=== PATIENT | female | born 1940 | race Caucasian/White ===

== ENCOUNTER 2020-08-01 17:42 | Observation (INO) | payer MEDICARE, SELFPAY ==
[2020-08-01 17:55] VITALS: BP 173/96; PULSE 79; RESP 18; TEMP 36.7; O2SAT 91; BMI 17.3
--- NOTE | 2020-08-01 18:39 | ECG_ITS ---
[facility] Test Date: 2020-08-01 Pat Name: Devorah Vickers Department: Room: Gender: Female Filler Feeder: : 1940 Requested By: Fidel Pham Order Number: [id number] Malloy MD: Alia Xie M.D. Measurements Intervals Reliance Rate: 72 P: 88 PA: 181 QRS: -27 QRSD: 138 T: 88 QT: 444 QTc: 487 Interpretive Statements SINUS RHYTHM WITH SINUS ARRHYTHMIA LEFT BUNDLE BRANCH BLOCK [120+ ms QRS DURATION, 80+ ms Q/S IN V1/V2, 85+ ms R IN I/aVL/V5/V6] Compared to ECG 03/27/2018 04:17:44 Left-axis deviation no longer present Electronically Signed On 08-02-2020 8:01:33 LEHR STRIPPER by Alia Xie M.D. [id number]
[2020-08-01 19:07] LABS: Basophils # 0.1 10^3/uL (0.0-0.1); Basophils % 1.5 %; Eosinophils # 0.3 10^3/uL (0.0-0.8); Eosinophils % 6.1 %; Hematocrit 46.2 % (37.0-47.0); Hemoglobin 14.7 g/dL (11.5-15.3); Lymphocytes # 1.7 10^3/uL (0.8-4.8); Lymphocytes % 31.9 %; Mean Corpuscular HGB Conc 31.8 g/dL (30.0-36.0); Mean Corpuscular Hemoglobin 29.3 pg (28.0-34.0); Mean Corpuscular Volume 92.2 fL (81-99); Mean Platelet Volume 10.7 fL (7.4-10.4); Monocytes # 0.4 10^3/uL (0.2-0.9); Monocytes % 6.9 %; Neutrophils # 2.78 10^3/uL (1.8-7.7); Neutrophils % 53.4 %; Nucleated Red Blood Cells % 0 %; Platelet Count 195 10^3/cmm (130-400); Red Blood Count 5.01 10^6/uL (4.1-5.3); Red Cell Distribution Width 12.9 % (12.1-15.1); White Blood Count 5.2 10^3/uL (4.0-10.0)
--- NOTE | 2020-08-01 19:15 | XR_ITS ---
WS: [id number] XR chest 1V portable [id number] REASON FOR EXAM: cough, wheezing FINDINGS: The chest is relatively unchanged compared to previous examination of 03/26/2018. Calcification in the aortic arch with minimal tortuosity. Calcified granulomatous disease in both hemithoraces. Significant flattening of the hemidiaphragms wi th moderate hyperexpansion. No definite active pulmonary parenchymal or pleural disease is noted. XR/XR chest 1V portable [id number] IMPRESSION: Lung configuration indicating obstructive lung disease. No acute abnormality is identified.
[2020-08-01 19:32] LABS: Procalcitonin 0.06 ng/mL (0-0.5)
[2020-08-01] MEDS: sodium chloride 0.9% 500 ML IV (19:33)
[2020-08-01 19:43] LABS: Alanine Aminotransferase 13 U/L (0-33); Alkaline Phosphatase 86 IU/L (35-105); Anion Gap 11.4 (5-19); Aspartate Amino Transferase 22 U/L (0-32); Blood Urea Nitrogen 24 mg/dL (8-23); Calcium 9.5 mg/dL (8.5-10.5); Carbon Dioxide 31 mmol/L (22-29); Chloride 100 mmol/L (98-107); Ferritin 137 ng/mL (15-150); Globulin 2.9 g/dL (1.3-4.6); Glucose 79 mg/dL (65-115); Lipase 24 U/L (13-60); Osmolality Calculated 289 mOsm/kg (285-295); Potassium 4.4 mmol/L (3.5-5.1); Sodium 138 mmol/L (136-145); Total Bilirubin 0.3 mg/dL (0.15-1.2); Total Protein 6.9 g/dL (6.6-8.7)
[2020-08-01 19:51] LABS: Bilirubin Urine Neg (Negative); Blood Urine 3+ (Negative); Glucose Urine UA Norm (Normal); Ketones Urine Negative (Negative); Leukocyte Esterase Urine Negative (Negative); Nitrate Urine Negative (Negative); Protein Urine Neg (Negative); Specific Gravity, Urine 1.025 (1.005-1.030); Urine Appearance Clear (CLEAR); Urine Color Yellow (Yellow); Urobilinogen Urine Norm (Negative); pH Urine 5 (5-7)
[2020-08-01 19:52] LABS: Add Urine Culture? No; Bacteria Urine TRACE /hpf; Hyaline Casts Urine 0-4 /lpf; Mucus Urine 2+ /hpf; Squamous Epithelial Cell Urine 15-25 /hpf (0-5); WBC Urine 0-4 /hpf (0-5)
--- NOTE | 2020-08-01 20:27 | W.ED.SOB ---
HPI - SOB/Dyspnea General: Chief Complaint: Nausea/Vomiting/Diarrhea Stated Complaint: nausea, loss appetite Time Seen by Provider: 08/01/20 18:50 Source: patient and family Mode of arrival: ambulatory Limitations: no limitations History of Present Illness: HPI Narrative: Patient is an 80 year old female who presents to the ED with complaints of cough, chest congestion, and shortness of breath. She only quit smoking about one week ago. She denies a fever. She has had these symptoms for a few weeks but it got worse today. MD elicited complaint: shortness of breath and cough Pertinent past history: COPD Onset (ago): week(s) Timing: intermittent and progressively worsening Severity: moderate Relieving factors: bronchodilators Known history of: COPD Associated symptoms: Reports chest congestion, cough and nausea; Deny abdominal pain, chest pain, diaphoresis, dizziness, extremity pain, fever(s), hemoptysis, lightheadedness, myalgias, orthopnea, palpitations, paresthesias, polydipsia, polyuria, rash or sense of impending doom Treatment prior to arrival: bronchodilator Review of Systems General: Reports: 10 or more systems reviewed and unremarkable except in HPI and below Const: Denies: fever(s) or diaphoresis Eyes: Denies: change in vision or blurry vision ENMT: Denies: throat pain, enlarged tonsils, odynophagia, hoarseness, mouth pain or swelling of lips/tongue Card: Denies: chest pain, palpitations, lightheadedness or orthopnea Resp: Reports: chest congestion; Denies: hemoptysis GI: Reports: nausea; Denies: abdominal pain : Denies: flank pain, difficulty voiding, dysuria, urinary frequency, urinary urgency or urinary hesitancy Musc: Denies: extremity pain Skin/Breast: Denies: rash, pruritus or erythema Neuro: Denies: dizziness Endo: Denies: polyuria or polydipsia PFS ED PFSH: Medical History (Updated 08/02/20 @ 00:58 by Daphney Toscano MD, [facility]) COPD (chronic obstructive pulmonary disease) History of skin cancer Hyperlipidemia Hypertension Surgical History (Updated 08/02/20 @ 00:29 by Nba Riggs MD) S/P skin biopsy Family History (Updated 08/02/20 @ 00:29 by Nba Riggs MD) Other CAD (coronary artery disease) Social History (Reviewed 08/01/20 @ 20:33 by Daphney Toscano MD, [facility]) Smoking and tobacco status: former smoker Alcohol intake: former Substance/Drug Use: never Physical Exam Const: COMMON NORMALS: no acute distress, average body habitus, patient oriented x3, no limitations, healthy appearing, alert and well nourished HENMT: COMMON NORMALS: normocephalic, atraumatic and moist oral mucous membranes HEAD & SCALP: normocephalic and atraumatic Neck/C-Spine: COMMON NORMALS: full ROM, supple, no meningeal signs, no JVD and No carotid bruits Resp: COMMON NORMALS: normal respiratory effort, No retractions, No use of accessory muscles and percussion normal AUSCULTATION: rales on the left in the lower lung diez, wheezes expiratory wheezes and throughout and diminished lung sounds PERCUSSION: percussion normal Cardio: COMMON NORMALS: no JVD, regular rate, regular rhythm, S1 normal heart sound present, S2 normal heart sound present, No gallops present (Cardio), No clicks present (Cardio), No murmurs present (Cardio), No rub (Cardio) and Peripheral pulses 2+ throughout RATE: regular rate RHYTHM: regular rhythm HEART SOUNDS: S1 normal heart sound present and S2 normal heart sound present PERIPHERAL PULSES: Peripheral pulses 2+ throughout GI: COMMON NORMALS: Normal to inspection, nondistended, normoactive bowel sounds present, Soft to palpation, non-tender, No hepatosplenomegaly present, no masses and no bruits PALPATION: Yes Soft to palpation and Yes No hepatosplenomegaly present Extremity: COMMON NORMALS: normal to inspection, full ROM, capillary refill normal, no calf tenderness and no pedal edema Neuro: COMMON NORMALS: patient oriented x3 SENSORIUM/ORIENTATION: Yes alert MENINGEAL SIGNS: Yes no meningeal signs Skin: COMMON NORMALS: no rashes or lesions noted, no wounds, turgor normal, no jaundice, no petechiae and no mottling GENERAL SKIN EXAM: no rashes or lesions noted and turgor normal Course ED course: Patient who presented to the emergency department with shortness of breath, nausea, and in the emergency department she tested negative for the rapid Covid test. A Covid PCR was sent out. She will be admitted to the hospital for further evaluation and management Consultations: Consultation #1: Dr. Riggs who kindly accepted the patient to his service. Vital Signs: Vital signs: Vital Signs Temperature 98.0 F 08/01/20 17:55 Pulse Rate 84 08/02/20 00:15 Respiratory Rate 18 08/02/20 00:15 Blood Pressure 136/88 08/02/20 00:15 Pulse Oximetry 94 08/02/20 00:15 MDM - SOB/Dyspnea MDM Narrative: Medical decision making narrative: 80-year-old female patient who presented to the emergency department with likely COPD exacerbation. She is admitted for further evaluation and management. She was hypoxic and required oxygen while in the ED. Medical Records: Attestation: I reviewed the patient's medical records. Lab Data: Attestation: I reviewed the patient's lab results. Labs: Lab Results 08/01/20 08/01/20 08/01/20 Range/Units 19:00 19:00 19:00 WBC 5.2 (4.0-10.0) 10^3/ uL RBC 5.01 (4.1-5.3) 10^6/u L Hgb 14.7 (11.5-15.3) g/dL Hct 46.2 (37.0-47.0) % MCV 92.2 (81-99) fL MCH 29.3 (28.0-34.0) pg MCHC 31.8 (30.0-36.0) g/dL RDW 12.9 (12.1-15.1) % Plt Count 195 (130-400) 10^3/c mm MPV 10.7 H (7.4-10.4) fL Neut % (Auto) 53.4 % Lymph % (Auto) 31.9 % Lincoln % (Auto) 6.9 % Eos % (Auto) 6.1 % Baso % (Auto) 1.5 % Neut # (Auto) 2.78 (1.8-7.7) 10^3/u L Lymph # (Auto) 1.7 (0.8-4.8) 10^3/u L Lincoln # (Auto) 0.4 (0.2-0.9) 10^3/u L Eos # (Auto) 0.3 (0.0-0.8) 10^3/u L Baso # (Auto) 0.1 (0.0-0.1) 10^3/u L Nucleated RBC % (a uto) 0 % Nucleated RBCs # 0.0 /100WBC Sodium 138 (136-145) mmol/L Potassium 4.4 (3.5-5.1) mmol/L Chloride 100 (98-107) mmol/L Carbon Dioxide 31 H (22-29) mmol/L Anion Gap 11.4 (5-19) BUN 24 H (8-23) mg/dL Creatinine 0.6 (0.5-0.9) mg/dL GFR Calculation Not Reportable Glucose 79 (65-115) mg/dL Calculated Osmolal ity 289 (285-295) mOsm/k g Lactic Acid 1.0 (0.5-2.2) mmol/L Calcium 9.5 (8.5-10.5) mg/dL Ferritin 137 (15-150) ng/mL Total Bilirubin 0.3 (0.15-1.2) mg/dL AST 22 (0-32) U/L ALT 13 (0-33) U/L Alkaline Phosphata se 86 (35-105) IU/L Total Protein 6.9 (6.6-8.7) g/dL Albumin 4.0 (3.5-5.2) g/dL Globulin 2.9 (1.3-4.6) g/dL Lipase 24 (13-60) U/L Procalcitonin 0.06 (0-0.5) ng/mL Urine Color (Yellow) Urine Appearance (CLEAR) Urine pH (5-7) Ur Specific Gravit y (1.005-1.030) Urine Protein (Negative) Urine Glucose (UA) (Normal) Urine Ketones (Negative) Urine Blood (Negative) Urine Nitrate (Negative) Urine Bilirubin (Negative) Urine Urobilinogen (Negative) mg/dL Ur Leukocyte Mattie ase (Negative) Urine RBC (0-2) /hpf Urine WBC (0-5) /hpf Ur Squamous Epith Cells (0-5) /hpf Amorphous Sediment Urine Bacteria (NONE) /hpf Hyaline Casts /lpf Urine Mucus /hpf Influenza Type A A g (Negative) Influenza Type B A g (Negative) SARS-CoV-2 Ag (Rap id) (Negative) 08/01/20 08/01/20 08/01/20 Range/Units 19:27 19:40 22:35 WBC (4.0-10.0) 10^3/ uL RBC (4.1-5.3) 10^6/u L Hgb (11.5-15.3) g/dL Hct (37.0-47.0) % MCV (81-99) fL MCH (28.0-34.0) pg MCHC (30.0-36.0) g/dL RDW (12.1-15.1) % Plt Count (130-400) 10^3/c mm MPV (7.4-10.4) fL Neut % (Auto) % Lymph % (Auto) % Lincoln % (Auto) % Eos % (Auto) % Baso % (Auto) % Neut # (Auto) (1.8-7.7) 10^3/u L Lymph # (Auto) (0.8-4.8) 10^3/u L Lincoln # (Auto) (0.2-0.9) 10^3/u L Eos # (Auto) (0.0-0.8) 10^3/u L Baso # (Auto) (0.0-0.1) 10^3/u L Nucleated RBC % (a uto) % Nucleated RBCs # /100WBC Sodium (136-145) mmol/L Potassium (3.5-5.1) mmol/L Chloride (98-107) mmol/L Carbon Dioxide (22-29) mmol/L Anion Gap (5-19) BUN (8-23) mg/dL Creatinine (0.5-0.9) mg/dL GFR Calculation Glucose (65-115) mg/dL Calculated Osmolal ity (285-295) mOsm/k g Lactic Acid (0.5-2.2) mmol/L Calcium (8.5-10.5) mg/dL Ferritin (15-150) ng/mL Total Bilirubin (0.15-1.2) mg/dL AST (0-32) U/L ALT (0-33) U/L Alkaline Phosphata se (35-105) IU/L Total Protein (6.6-8.7) g/dL Albumin (3.5-5.2) g/dL Globulin (1.3-4.6) g/dL Lipase (13-60) U/L Procalcitonin (0-0.5) ng/mL Urine Color Yellow (Yellow) Urine Appearance Clear (CLEAR) Urine pH 5 (5-7) Ur Specific Gravit y 1.025 (1.005-1.030) Urine Protein Neg (Negative) Urine Glucose (UA) Norm (Normal) Urine Ketones Negative (Negative) Urine Blood 3+ H (Negative) Urine Nitrate Negative (Negative) Urine Bilirubin Neg (Negative) Urine Urobilinogen Norm (Negative) mg/dL Ur Leukocyte Mattie ase Negative (Negative) Urine RBC 5-10 H (0-2) /hpf Urine WBC 0-4 H (0-5) /hpf Ur Squamous Epith Cells 15-25 H (0-5) /hpf Amorphous Sediment Not Reportable Urine Bacteria Trace (NONE) /hpf Hyaline Casts 0-4 H /lpf Urine Mucus 2+ /hpf Influenza Type A A g Negative (Negative) Influenza Type B A g Negative (Negative) SARS-CoV-2 Ag (Rap id) Negative (Negative) Imaging Data^: CXR: Attestation: I personally reviewed and interpreted this imaging study as follows: My impression: Hyperexpanded lungs. No infiltrates noted EKG Data^: EKG 1: EKG Interpretation Date: 08/01/20 EKG interpretation time: 18:55 Prior EKG tracings: not available for review Interpretation: Sinus rhythm with sinus arrhythmia. Heart rate 72 bpm. Left bundle branch block. Discharge Plan Discharge Patient Disposition: Admitted As Inpatient Admit Provider: Nba Riggs Clinical Impression: COPD exacerbation, Hypoxia Condition: Stable Coding Level of Care Code ED Earth Science Teacher for Chg Fwd Exam Comprehensive
[2020-08-01 20:28] LABS: Influenza A by IFA Negative (Negative); Influenza B by IFA Negative (Negative)
[2020-08-01 21:10] VITALS: BP 159/101; PULSE 74; RESP 17; O2SAT 91
[2020-08-01 23:26] LABS: SARS Covid-2 Antigen Negative (Negative)
[2020-08-01] MEDS: azithromycin 500 MG in sodium chloride 0.9% 250 ML 250 MG IV (23:56)
[2020-08-02] VITALS (16 sets, daily range): BP systolic 105–157; BP diastolic 57–95; PULSE 61–90; RESP 10–18; TEMP 36.3–36.7; O2SAT 90–97
--- NOTE | 2020-08-02 00:26 | P.HP_ITS ---
Providers/Chief Complaint Admitting Physician: Nba Riggs MD Primary Care Provider: ARNALDO Coley Chief Complaint: VOMITING History of Present Illness Devorah Vickers is a 80 year old female with a past medical history of COPD, hypertension, hyperlipidemia who presents to [facility] due to complaints of shortness of breath. Patient tells me that she lives here in [place], she lives by herself, recently she has been complaining of increased shortness of breath, nonproductive cough, no fevers, no chills, no sick contacts, no known exposure to COVID-19. She quit smoking roughly a month ago, has greater than 79-ydhs-asou history of smoking, no hemoptysis, no bilateral calf swelling, no history of DVT or PEs Review of Systems Const: Denies: fever(s), chills, fatigue or malaise Eyes: Denies: change in vision or blurry vision ENMT: Denies: nasal congestion Card: Denies: chest pain, palpitations or irregular heart rhythm Resp: Reports: dyspnea and non-productive cough; Denies: productive cough or wheezing GI: Denies: abdominal pain, nausea, vomiting, hematemesis, diarrhea, constipation, hematochezia or melena : Denies: flank pain, dysuria or urinary frequency Musc: Denies: neck pain or back pain Skin/Breast: Denies: rash Neuro: Denies: headache(s), dizziness or vertigo Psych: Denies: anxiety or depression Endo: Denies: polyuria or polydipsia Medications/Allergies Allergies Allergy/AdvReac Type Severity Reaction Status Date / Time No Known Allergies Allergy Verified 08/01/20 18:02 Additional Medication Information Albuterol inhaler at home, uses other inhalers but cannot remember what they are called PFSH Acute PFSH: Medical History (Updated 08/02/20 @ 00:29 by Nba Riggs MD) COPD (chronic obstructive pulmonary disease) History of skin cancer Hyperlipidemia Hypertension Surgical History (Updated 08/02/20 @ 00:29 by Nba Riggs MD) S/P skin biopsy Family History (Updated 08/02/20 @ 00:29 by Nba Riggs MD) Other CAD (coronary artery disease) Social History Smoking and tobacco status: former smoker Alcohol intake: former Substance/Drug Use: never Vitals/I&O/Wt Last Vital Signs Temp 98.0 F 08/01/20 17:55 Pulse 84 08/02/20 00:15 Resp 18 08/02/20 00:15 BP 136/88 08/02/20 00:15 Pulse Ox 94 08/02/20 00:15 Weight last 48 hrs Weight 47.174 kg Physical Exam Const: COMMON NORMALS: no acute distress and patient oriented x3 GENERAL APPEARANCE: cooperative and comfortable HENMT: COMMON NORMALS: normocephalic HEAD & SCALP: normocephalic Eye: COMMON NORMALS: Equal, round and reactive pupils present, EOMs intact bilaterally and no papilledema GENERAL EYE: appearance normal, both eyes and all related structures PUPIL: Yes Equal, round and reactive pupils present DIRECT OPHTHALMOSCOPY: Yes no papilledema Neck/C-Spine: COMMON NORMALS: full ROM, no lymphadenopathy, no JVD and Thyroid normal THYROID: Thyroid normal Lymph: LYMPHATIC: no lymphadenopathy noted Resp: COMMON NORMALS: normal respiratory effort, No retractions, No use of accessory muscles and clear to auscultation bilaterally AUSCULTATION: wheezes Cardio: COMMON NORMALS: no JVD, regular rate, regular rhythm, S1 normal heart sound present, S2 normal heart sound present, No gallops present (Cardio), No clicks present (Cardio) and No murmurs present (Cardio) RATE: regular rate RHYTHM: regular rhythm HEART SOUNDS: S1 normal heart sound present and S2 normal heart sound present GI: COMMON NORMALS: Normal to inspection, nondistended, normoactive bowel sounds present, Soft to palpation, non-tender and No hepatosplenomegaly present PALPATION: Yes Soft to palpation and Yes No hepatosplenomegaly present Extremity: COMMON NORMALS: normal to inspection, full ROM and no pedal edema Neuro: COMMON NORMALS: patient oriented x3, CN's II-XII intact bilaterally, moves all extremities and no focal motor deficits Psych: COMMON NORMALS: mental status grossly normal, Normal thought process present and cooperative THOUGHT PROCESS: Normal thought process present Data : 08/01/20 19:00 08/01/20 19:00 A&P Assessment and plan (1) COPD exacerbation: -Solu-Medrol 40 every 8 hours, after 125 once -Advair, Spiriva, albuterol -Covid PCR ordered, Covid precautions -Oxygen therapy -Azithromycin for anti-inflammatory effect -CT of the chest ordered -Lovenox for DVT prophylaxis -Patient is DNR/DNI Status: Acute (2) COPD (chronic obstructive pulmonary disease): Status: Acute (3) Hyperlipidemia: Status: Acute (4) Hypertension: Status: Acute Attestations Medical Necessity Statement*: She requires hospitalization, outpatient with observation, for COPD exacerbation Coding Level of Care Code Acute Director Operations for [facility] Diagnoses COPD exacerbation J44.1 COPD (chronic obstructive pulmonary disease) J44.9 Hyperlipidemia E78.5 Hypertension I10
--- NOTE | 2020-08-02 01:37 | CT_ITS ---
WS: [id number] CT CHEST TECHNIQUE: Noncontrast CT of the chest with coronal and sagittal reformatted images. CLINICAL INFORMATION: sob COMPARISON: None. DLP: 329.[address] scans at [facility] use at least one of these dose optimization techniques: automat ed exposure control; mA and/or kV adjustment per patient size (includes targeted exams where dose is matched to clinical indication); or iterative reconstruction. FINDINGS: Moderate chronic emphysematous changes. No acute pulmonary infiltrates. No focal pneumonia or pleural fluid. Slight subsegmental atelectasis in the lung bases. No mediastinal or hilar lymphadenopathy. A ortic calcification. No axillary lymphadenopathy. Adrenal glands are normal. Hypertrophic changes thoracic spine. CT/CT chest wo con [id number] IMPRESSION: 1. Moderate chronic emphysematous changes. No acute pulmonary infiltrates. 2. No focal pneumonia or pleural fluid. 3. No mediastinal or hilar lymphadenopathy. Aortic calcification.
[2020-08-02 02:43] LABS: NT Pro B Type Natriuretic Pept 701 pg/mL (0-450)
[2020-08-02] MEDS: enoxaparin 40 mg/0.4 mL Syringe SUBCUT (05:40)
[2020-08-02 05:57] LABS: C Reactive Protein 1.7 mg/L (0.0-4.9)
[2020-08-02] MEDS: albuterol 8 gm MDI 1 PUFF INHALATION ×4 (07:32→20:12)
--- NOTE | 2020-08-02 09:07 | PC.CHAP ---
Pastoral Care Encounter/Spiritual Assessment Type of Contact [] Declined career guidance counselor visit [] Patient/Family/Request visit [] Outpatient visit [] Follow-up visit [] Physician referral [] Code/Alert [] Routine visit [] Staff referral [] Actively dying [] Patient sleeping [] Family support [] [] Out of room [] Palliative care [] [x] Receiving care in room [] Pre-surgical visit [] Trauma [] Long length of stay [] ICU visit [] Other: Relational/Emotional Strength [] Patient feels connected with others/family/visitors/staff [] Distress [] Loneliness/isolation [] Abandonment Spirituality of Patient [] Person of Alley [] Attends Roman Catholic of their Alley [] Believes in Prayer [] Reads Bible or Gnosticism materials [] There are Spiritual issues to be addressed Sociology Adjunct Instructor Interventions [] Prayer [] Active listening [] Non-anxious presence [] Spiritual/emotional support [] Crisis/trauma care [] Spiritual counseling [] Bereavement support [] Provided bereavement packet [] Provided Bible/devotional materials [] Provided toy/stuffed animal, coloring book to patient or family member [] Provided Communion [] Anointing/Mission [] Salvation [] Completed spiritual assessment [] Other: Impact on Illness or Injury [] Angry [] Fearful [] Anxious [] Often cries [] Exhaustion [] Unable to work [] Unable to attend yazidism [] Unable to walk/stand [] Unable to read [] Unable to drive [] Unable to eat/drink [] Unable to sleep [] Unable to be with family [] Patient intubated [] Other: Summary Time spent with patient
--- NOTE | 2020-08-02 09:51 | PM.PN ---
Subjective Subjective: Interval history: Devorah reports she feels little bit better. Less coughing. Medications: Reviewed: Yes Vitals/I&O/Wt Last Vital Signs Temp 97.9 F 08/02/20 07:29 Pulse 88 08/02/20 07:37 Resp 16 08/02/20 07:33 BP 122/76 08/02/20 07:29 Pulse Ox 91 08/02/20 07:33 08/01/20 08/02/20 08/02/20 22:59 06:59 14:59 Intake Total 240 / 240 Balance 240 / 240 Weight last 48 hrs Weight 47.174 kg Physical Exam Narrative: EXAM NARRATIVE: General exam no apparent distress Cardiovascular regular rate and rhythm without murmur Lungs bilateral expiratory wheezes Abdomen is soft with positive bowel sounds. Extremities no cyanosis clubbing or edema Data : 08/01/20 19:00 08/01/20 19:00 Micro: Microbiology 08/02/20 04:38 Blood Culture - Preliminary Blood SPECIMEN COLLECTED A&P Assessment and plan (1) COPD exacerbation: Discontinue IV steroids Changed to prednisone Continue pulmonary toilet with Advair, Spiriva, albuterol Continue azithromycin Wean oxygen as tolerated Covid PCR pending, rapid negative CT of chest is ordered and pending Status: Acute (2) COPD (chronic obstructive pulmonary disease): See notations above Status: Acute (3) Hyperlipidemia: Will need to reconcile home medication list Status: Chronic (4) Hypertension: Need to reconcile home medication list Status: Chronic Attestations Medical Necessity Statement*: Needs continued hospital stay for close monitoring secondary to COPD exacerbation requiring IV steroids. Coding Level of Care Code Acute Manager Account Management for [facility] Diagnoses COPD exacerbation J44.1 COPD (chronic obstructive pulmonary disease) J44.9 Hyperlipidemia E78.5 Hypertension I10
[2020-08-02] MEDS: predniSONE 20 mg Tablet 40 MG PO (11:03)
--- NOTE | 2020-08-02 17:55 | PC.RESP ---
Pulmonary Rehab information sent to patient.
[2020-08-03] VITALS (14 sets, daily range): BP systolic 134–159; BP diastolic 72–81; PULSE 60–77; RESP 16–18; TEMP 36.3–36.7; O2SAT 88–97
[2020-08-03] MEDS: albuterol 8 gm MDI 1 PUFF INHALATION ×5 (00:52→16:52)
[2020-08-03 05:32] LABS: Basophils % 0.2 %; Eosinophils % 0.1 %; Hematocrit 40.9 % (37.0-47.0); Hemoglobin 13.2 g/dL (11.5-15.3); Lymphocytes # 1.5 10^3/uL (0.8-4.8); Lymphocytes % 13.8 %; Mean Corpuscular HGB Conc 32.3 g/dL (30.0-36.0); Mean Corpuscular Hemoglobin 29.7 pg (28.0-34.0); Mean Corpuscular Volume 91.9 fL (81-99); Mean Platelet Volume 11.4 fL (7.4-10.4); Monocytes # 0.5 10^3/uL (0.2-0.9); Monocytes % 5.1 %; Neutrophils # 8.43 10^3/uL (1.8-7.7); Neutrophils % 80.4 %; Nucleated Red Blood Cells % 0 %; Platelet Count 199 10^3/cmm (130-400); Red Blood Count 4.45 10^6/uL (4.1-5.3); Red Cell Distribution Width 13.1 % (12.1-15.1); White Blood Count 10.5 10^3/uL (4.0-10.0)
[2020-08-03] MEDS: enoxaparin 40 mg/0.4 mL Syringe SUBCUT (05:35)
[2020-08-03 06:15] LABS: Alanine Aminotransferase 9 U/L (0-33); Albumin Level 3.5 g/dL (3.5-5.2); Alkaline Phosphatase 70 IU/L (35-105); Anion Gap 12.2 (5-19); Aspartate Amino Transferase 14 U/L (0-32); Blood Urea Nitrogen 35 mg/dL (8-23); Carbon Dioxide 29 mmol/L (22-29); Chloride 103 mmol/L (98-107); Globulin 2.6 g/dL (1.3-4.6); Glucose 108 mg/dL (65-115); Osmolality Calculated 299 mOsm/kg (285-295); Potassium 4.2 mmol/L (3.5-5.1); Sodium 140 mmol/L (136-145); Thyroid Stimulating Hormone 0.35 uIU/mL (0.27-4.20); Total Bilirubin 0.3 mg/dL (0.15-1.2); Total Protein 6.1 g/dL (6.6-8.7)
--- NOTE | 2020-08-03 08:03 | PM.DCS ---
Discharge Providers Date of Admission: 08/02/20 01:37 Date of Discharge: August 03, 2020 Attending Provider at Admission: Nba Riggs MD Attending Provider at Discharge: Sergio Mercado MD Primary Care Provider: ARNALDO Coley Diagnoses at Discharge Discharge Diagnosis (1) COPD exacerbation: Status: Acute Permanent problem details: Improved. Home O2 evaluation prior to discharge (2) COPD (chronic obstructive pulmonary disease): Status: Acute (3) Hyperlipidemia: Status: Chronic (4) Hypertension: Status: Chronic Reason for Visit Reason for Visit: VOMITING Hospital Course Hospital Course Devorah is an 80-year-old white female who presented to the hospital short of breath. On exam she was wheezing. Chest x-ray demonstrated no infiltrate. She was diagnosed with a COPD exacerbation and put on IV steroids, pulmonary toilet, oxygen. During her hospitalization the oxygen was able to be weaned. Wheezing decreased significantly. She was treated with a azithromycin for inflammation as well as possibility of superimposed infection. By August 03 she was feeling much better. She had weaned to room air oxygen. A home oxygen evaluation will be performed prior to discharge home. She will take prednisone for 3 more days, azithromycin for 3 more days, and follow-up with her primary care provider in 3 to 5 days. Blood pressure was borderline high while in the hospital and this will need to be addressed on an outpatient basis as well. She was screened for Covid with a rapid being negative and a PCR pending. CT of chest demonstrated no pneumonia, no adenopathy. Changes consistent with COPD were noted. Physical Exam Narrative: EXAM NARRATIVE: General exam is no apparent distress Cardiovascular regular rate and rhythm Lungs diminished breath sounds bilaterally but no wheezing Abdomen is soft, positive bowel sounds. Extremities no cyanosis clubbing or edema Discharge Data Data Completed and Pending: Completed Studies During Hospitalization Category Date Time Status CT chest wo con 7 1250 Routine Cat Scan 08/02/20 01:37 Completed XR chest 1V jeramy ble [id number] Stat Exams 08/01/20 19:15 Completed Pending at discharge Category Date Time Status Blood Culture Sta t Lab 08/01/20 18:39 Results Complete Blood Co unt w/Auto AM LABS Lab 08/04/20 04:00 Ordered Complete Blood Co unt w/Auto AM LABS Lab 08/05/20 04:00 Ordered Comprehensive Met abolic Panel AM LA BS Lab 08/04/20 04:00 Ordered Comprehensive Met abolic Panel AM LA BS Lab 08/05/20 04:00 Ordered [facility] SARS-CoV-2 RNA Routine Lab 08/01/20 19:42 Received Sputum Culture an d Gram Stain Stat Lab 08/02/20 01:37 Uncollected Labs from last 24 hours 08/03/20 08/03/20 05:04 05:04 WBC 10.5 H RBC 4.45 Hgb 13.2 Hct 40.9 MCV 91.9 MCH 29.7 MCHC 32.3 RDW 13.1 Plt Count 199 MPV 11.4 H Neut % (Auto) 80.4 Lymph % (Auto) 13.8 [place] % (Auto) 5.1 Eos % (Auto) 0.1 Baso % (Auto) 0.2 Neut # (Auto) 8.43 H Lymph # (Auto) 1.5 [place] # (Auto) 0.5 Eos # (Auto) 0.0 Baso # (Auto) 0.0 Nucleated RBC % (a uto) 0 Nucleated RBCs # 0.0 Sodium 140 Potassium 4.2 Chloride 103 Carbon Dioxide 29 Anion Gap 12.2 BUN 35 H Creatinine 0.6 GFR Calculation Not Reportable Glucose 108 Calculated Osmolal ity 299 H Calcium 9.0 Total Bilirubin 0.3 AST 14 ALT 9 Alkaline Phosphata se 70 Total Protein 6.1 L Albumin 3.5 Globulin 2.6 TSH 0.35 Vitals: Last Vital Signs Temp 97.7 F 08/03/20 07:18 Pulse 60 08/03/20 07:18 Resp 16 08/03/20 07:18 BP 144/81 08/03/20 07:18 Pulse Ox 94 08/03/20 07:18 Discharge Plan Discharge Patient Disposition: Home Condition: Stable Prescriptions: New albuterol sulfate [Ventolin HFA] 90 mcg/actuation Hfa Aerosol Inhaler 1 puff inhalation Q4H.RESPIRATORY Qty: 2 RF: 0 fluticasone propion-salmeterol [Advair Diskus] 250-50 mcg/dose Blister With Device 1 puff inhalation BID.RESPIRATORY Qty: 1 RF: 0 azithromycin 250 mg Tablet 250 mg PO DAILY Qty: 3 RF: 0 Spiriva with HandiHaler 18 mcg Capsule, W/Inhalation Device 18 mcg inhalation DAILY.RESPIRATORY Qty: 30 RF: 0 prednisone 20 mg Tablet 40 mg PO DAILY Qty: 6 RF: 0 No Action No Known Home Medications RF: 0 Referrals: Bibiana Hatfield FNP [Primary Care Provider] - 4-7 days Discharge Diet: Cardiac Discharge Activity: Increase activity as tolerated Activity Restrictions/Additional Instructions: Home oxygen evaluation prior to discharge Take all medicine as prescribed Follow-up with primary care provider 3 to 5 days Discharge Attestations Time Spent in Discharge Care*: greater than 30 min Quality Metrics Clinical Quality Measures During this hospital stay, did patient experience: None Coding Level of Care Code Acute Detasseling Crew Supervisor for g Fwd Diagnoses COPD exacerbation J44.1 COPD (chronic obstructive pulmonary disease) J44.9 Hyperlipidemia E78.5 Hypertension I10
[2020-08-03] MEDS: azithromycin 250 mg Tablet PO (09:16)
[2020-08-03] MEDS: predniSONE 20 mg Tablet 40 MG PO (09:16)
--- NOTE | 2020-08-03 09:41 | PC.CHAP ---
Pastoral Care Encounter/Spiritual Assessment Type of Contact [] Declined lumpia wrapper maker visit [] Patient/Family/Request visit [] Outpatient visit [] Follow-up visit [] Physician referral [] Code/Alert [] Routine visit [] Staff referral [] Actively dying [] Patient sleeping [] Family support [] [] Out of room [] Palliative care [] [] Receiving care in room [] Pre-surgical visit [] Trauma [] Long length of stay [] ICU visit [] Other: Relational/Emotional Strength [] Patient feels connected with others/family/visitors/staff [] Distress [] Loneliness/isolation [] Abandonment Spirituality of Patient [] Person of Alley [] Attends Mu-Ism of their Alley [] Believes in Prayer [] Reads Bible or Judaism materials [] There are Spiritual issues to be addressed Deployment Technician Interventions [x] Prayer [] Active listening [] Non-anxious presence [] Spiritual/emotional support [] Crisis/trauma care [] Spiritual counseling [] Bereavement support [] Provided bereavement packet [] Provided Bible/devotional materials [] Provided toy/stuffed animal, coloring book to patient or family member [] Provided Communion [] Anointing/[place] [] Salvation [x] Completed spiritual assessment [] Other: Impact on Illness or Injury [] Angry [] Fearful [] Anxious [] Often cries [] Exhaustion [] Unable to work [] Unable to attend taoism [] Unable to walk/stand [] Unable to read [] Unable to drive [] Unable to eat/drink [] Unable to sleep [] Unable to be with family [] Patient intubated [] Other: Summary Time spent with patient
[2020-08-04 11:23] LABS: Quest SARS-CoV-2 RNA NOT DETECTED (NOT DETECTED)
== END 2020-08-03 17:24 | disposition home or self-care (01) ==
LOC: ER 22:21 → MEDSURG 08-02 00:58
PROVIDERS: Physician Assistant; Admitting Provider Family Medicine; Emergency Provider Family Medicine; PCP Nurse Practitioner; Visit Provider Internal Medicine
DX: J44.1 Chronic obstructive pulmonary disease with (acute) exacerbation (principal); I10 Essential (primary) hypertension; E78.5 Hyperlipidemia, unspecified; Z66 Do not resuscitate; Z85.828 Personal history of other malignant neoplasm of skin; Z87.891 Personal history of nicotine dependence
CPT/HCPCS: 12345; 36415; 71045; 71250; 80053; 81001; 82728; 83605; 83690; 83880; 84145; 84443; 85025; 86140; 87040; 87426; 87635; 87804; 93005; 94640; 94664; 96365; 96372; 96375; 97161; 97165; 97530; 99283; 99285; G0378; J0456; J1650; J2930; J3535; J7040; J7050; J7512; Q0144

== ENCOUNTER 2020-09-15 12:27 | Emergency (ER) | payer MEDICARE, SELFPAY ==
[2020-09-15 12:52] VITALS: BP 168/93; PULSE 79; RESP 18; TEMP 36.8; O2SAT 95; BMI 17.3
--- NOTE | 2020-09-15 13:17 | XRR_ITS ---
PROCEDURE INFORMATION: Exam: XR Chest, 1 View Exam date and time: 09/15/2020 2:16 PM Age: 80 years old Clinical indication: Condition or disease; Lung condition and disease; Copd; With exacerbation; Additional info: Copd exacerbation? TECHNIQUE: Imaging protocol: XR of the chest Views: 1 view. COMPARISON: CT chest [facility] [id number] 08/02/2020 1:38 PM FINDINGS: Lungs: Unremarkable. No consolidation. Pleural space: Unremarkable. No pleural effusion. No pneumothorax. Heart/Mediastinum: Unremarkable. No cardiomegaly. Bones/joints: Unremarkable. XR/XR chest 1V portable [id number] IMPRESSION: No acute findings.
[2020-09-15 13:19] VITALS: O2SAT 94
--- NOTE | 2020-09-15 13:29 | ECG_ITS ---
[facility] Test Date: 2020-09-15 Pat Name: Devorah Vickers Department: Room: Gender: Female Dam Operator: : 1940 Requested By: Russell Howell Order Number: [id number] Gama MD: Zelda Mcginnis M.D. Measurements Intervals [place] Rate: 73 P: 87 CT: 192 QRS: -82 QRSD: 161 T: 99 QT: 460 QTc: 509 Interpretive Statements SINUS RHYTHM POSSIBLE RIGHT ATRIAL ENLARGEMENT [0.25mV P WAVE] LEFT AXIS DEVIATION [QRS AXIS < -30] LEFT BUNDLE BRANCH BLOCK [120+ ms QRS DURATION, 80+ ms Q/S IN V1/V2, 85+ ms R IN I/aVL/V5/V6] WARNING: DATA QUALITY MAY AFFECT INTERPRETATION Compared to ECG 08/01/2020 18:55:47 Left-axis deviation now present Sinus arrhythmia no longer present Electronically Signed On 09-15-2020 21:26:26 CERTIFIED TOWER CLIMBER by Zelda Mcginnis M.D. [id number]
--- NOTE | 2020-09-15 13:30 | ED_ITS ---
HPI - SOB/Dyspnea General: Chief Complaint: Shortness of Breath/Dyspnea Stated Complaint: DIFFICULTY BREATHING Time Seen by Provider: 09/15/20 13:11 History of Present Illness: HPI Narrative: The patient is a 80-year-old female with past medical history of COPD recently admitted for a COPD exacerbation. She says she comes to the ER for increased cough and shortness of breath over the past couple days. She says she has quit smoking since her admission. MD elicited complaint: shortness of breath and cough Pertinent past history: COPD Onset (ago): day(s) (2) Context: occurred during exertion Timing: intermittent Severity: similar to previous episodes Exacerbating factors: exertion and coughing Relieving factors: bronchodilators Known history of: COPD Associated symptoms: Reports cough; Deny chest pain, dizziness, extremity pain, fever(s), nausea, orthopnea or polyuria Review of Systems General: Reports: 10 or more systems reviewed and unremarkable except in HPI and below Const: Denies: fever(s) Eyes: Denies: change in vision, blurry vision or eye redness ENMT: Denies: throat pain, swelling of lips/tongue, ear or mastoid pain or nasal congestion Card: Denies: chest pain or orthopnea Resp: Reports: dyspnea and non-productive cough; Denies: productive cough GI: Denies: nausea : Denies: flank pain, difficulty voiding, urinary frequency or urinary urgency Musc: Denies: neck pain, back pain, extremity pain, joint pain, joint redness, limited range of motion or muscle weakness Skin/Breast: Denies: rash, pruritus, erythema, skin pain or skin tenderness Neuro: Denies: headache(s), numbness in extremities, weakness in extremities, sensory changes, difficulty walking, dizziness, confusion or Slurred speech present Psych: Denies: anxiety or depression Endo: Denies: polyuria All/Imm: Denies: urticaria, throat swelling or tongue swelling PFSH ED PFSH: Medical History (Updated 09/15/20 @ 17:35 by Russell Howell MD) COPD (chronic obstructive pulmonary disease) History of skin cancer Hyperlipidemia Hypertension Surgical History (Updated 08/02/20 @ 00:29 by Nba Riggs MD) S/P skin biopsy Family History (Updated 08/02/20 @ 00:29 by Nba Riggs MD) Other CAD (coronary artery disease) Social History Smoking and tobacco status: former smoker Alcohol intake: former Physical Exam Const: COMMON NORMALS: no acute distress, average body habitus, patient oriented x3, no limitations, healthy appearing, alert and well nourished GENERAL APPEARANCE: cooperative, comfortable, well kempt and well developed ORIENTATION/CONSCIOUSNESS: Yes awake, Yes oriented to person, Yes oriented to place and Yes oriented to time HENMT: COMMON NORMALS: normocephalic, external ears normal and Normal external nose present HEAD & SCALP: normal to inspection and normocephalic NOSE: Normal external nose present EXTERNAL EAR: Yes external ears normal MOUTH: Normal oral and palatal mucosa present THROAT: posterior oropharynx normal Eye: COMMON NORMALS: Equal, round and reactive pupils present and EOMs intact bilaterally GENERAL EYE: appearance normal, both eyes and all related structures PUPIL: Yes Equal, round and reactive pupils present Neck/C-Spine: COMMON NORMALS: full ROM, no lymphadenopathy, no meningeal signs and no JVD GENERAL: Yes normal visual inspection Lymph: LYMPHATIC: no lymphadenopathy noted Chest: COMMONS NORMALS: normal inspection of the chest and normal palpation of entire chest wall Resp: COMMON NORMALS: normal respiratory effort, No retractions, No use of accessory muscles, clear to auscultation bilaterally and percussion normal EFFORT & INSPECTION: Yes able to speak in complete sentences AUSCULTATION: clear to auscultation bilaterally PERCUSSION: percussion normal Cardio: COMMON NORMALS: no JVD, regular rate, regular rhythm, S1 normal heart sound present, S2 normal heart sound present and Peripheral pulses 2+ throughout RATE: regular rate RHYTHM: regular rhythm HEART SOUNDS: S1 normal heart sound present and S2 normal heart sound present PERIPHERAL PULSES: Peripheral pulses 2+ throughout GI: COMMON NORMALS: Normal to inspection, nondistended, normoactive bowel sounds present, Soft to palpation, non-tender and no masses INSPECTION: Yes normal to inspection PALPATION: Yes Soft to palpation : COMMON NORMALS: Yes no CVA tenderness BLADDER/KIDNEY EXAM: Yes no CVA tenderness Back/Pelvis: COMMON NORMALS: no CVA tenderness, thoracic and lumbar spine normal to inspection, no thoracic nor lumbar tenderness and thoraco-lumbar ROM normal Extremity: COMMON NORMALS: normal to inspection, full ROM, capillary refill normal, no joint enlargement and no pedal edema GENERAL: Yes normal exam except as noted Neuro: COMMON NORMALS: patient oriented x3, CN's II-XII intact bilaterally, moves all extremities, no focal motor deficits, no sensory deficits noted and gait normal SENSORIUM/ORIENTATION: Yes alert, Yes oriented to person, Yes oriented to place and Yes oriented to time MENINGEAL SIGNS: Yes no meningeal signs Psych: COMMON NORMALS: mental status grossly normal, Normal thought process present, cooperative, normal affect and speech normal APPEARANCE: Yes well kempt ATTITUDE: Yes calm SPEECH: Yes normal speech THOUGHT PROCESS: Normal thought process present Skin: COMMON NORMALS: no rashes or lesions noted GENERAL SKIN EXAM: no rashes or lesions noted Course ED course: The patient came to the ER complaining of mild shortness of breath. She was given an albuterol inhaler dose with improvement of her symptoms. She is feeling much better and the CT angiogram was negative for blood clots. She is stable for discharge home. Recommended following up with primary care physician in a couple days to monitor improvement of symptoms and returning to the ER with worsening symptoms. Discharged with azithromycin and prednisone Medrol pack. As well as albuterol if she needs it Vital Signs: Vital signs: Vital Signs Temperature 98.3 F 09/15/20 12:52 Pulse Rate 72 09/15/20 15:04 Respiratory Rate 30 H 09/15/20 15:04 Blood Pressure 132/94 09/15/20 15:04 Pulse Oximetry 94 09/15/20 15:04 MDM - SOB/Dyspnea Lab Data: Labs: Lab Results 09/15/20 09/15/20 09/15/20 Range/Units 13:51 13:51 13:51 WBC 5.6 (4.0-10.0) 10^3/ uL RBC 5.32 H (4.1-5.3) 10^6/u L Hgb 15.5 H (11.5-15.3) g/dL Hct 48.7 H (37.0-47.0) % MCV 91.5 (81-99) fL MCH 29.1 (28.0-34.0) pg MCHC 31.8 (30.0-36.0) g/dL RDW 13.2 (12.1-15.1) % Plt Count 217 (130-400) 10^3/c mm MPV 10.6 H (7.4-10.4) fL Neut % (Auto) 56.6 % Lymph % (Auto) 29.5 % [place] % (Auto) 6.4 % Eos % (Auto) 5.9 % Baso % (Auto) 1.4 % Neut # (Auto) 3.19 (1.8-7.7) 10^3/u L Lymph # (Auto) 1.7 (0.8-4.8) 10^3/u L [place] # (Auto) 0.4 (0.2-0.9) 10^3/u L Eos # (Auto) 0.3 (0.0-0.8) 10^3/u L Baso # (Auto) 0.1 (0.0-0.1) 10^3/u L Nucleated RBC % (a uto) 0 % Nucleated RBCs # 0.0 /100WBC D-Dimer 1.47 H (0-0.59) ug/mIFE U Sodium 138 (136-145) mmol/L Potassium 4.5 (3.5-5.1) mmol/L Chloride 98 (98-107) mmol/L Carbon Dioxide 30 H (22-29) mmol/L Anion Gap 14.5 (5-19) BUN 16 (8-23) mg/dL Creatinine 0.6 (0.5-0.9) mg/dL GFR Calculation Not Reportable Glucose 74 (65-115) mg/dL Calculated Osmolal ity 286 (285-295) mOsm/k g Lactic Acid (0.5-2.2) mmol/L Calcium 9.4 (8.5-10.5) mg/dL Total Bilirubin 0.7 (0.15-1.2) mg/dL AST 18 (0-32) U/L ALT 10 (0-33) U/L Alkaline Phosphata se 96 (35-105) IU/L Troponin T Gen 5 n g/L (0-10) ng/L NT-Pro-B Natriuret Pep 1093 H (0-450) pg/mL Total Protein 6.9 (6.6-8.7) g/dL Albumin 4.0 (3.5-5.2) g/dL Globulin 2.9 (1.3-4.6) g/dL Influenza Type A A g (Negative) Influenza Type B A g (Negative) SARS-CoV-2 Ag (Rap id) (Negative) 09/15/20 09/15/20 09/15/20 Range/Units 13:51 13:51 13:52 WBC (4.0-10.0) 10^3/ uL RBC (4.1-5.3) 10^6/u L Hgb (11.5-15.3) g/dL Hct (37.0-47.0) % MCV (81-99) fL MCH (28.0-34.0) pg MCHC (30.0-36.0) g/dL RDW (12.1-15.1) % Plt Count (130-400) 10^3/c mm MPV (7.4-10.4) fL Neut % (Auto) % Lymph % (Auto) % [place] % (Auto) % Eos % (Auto) % Baso % (Auto) % Neut # (Auto) (1.8-7.7) 10^3/u L Lymph # (Auto) (0.8-4.8) 10^3/u L [place] # (Auto) (0.2-0.9) 10^3/u L Eos # (Auto) (0.0-0.8) 10^3/u L Baso # (Auto) (0.0-0.1) 10^3/u L Nucleated RBC % (a uto) % Nucleated RBCs # /100WBC D-Dimer (0-0.59) ug/mIFE U Sodium (136-145) mmol/L Potassium (3.5-5.1) mmol/L Chloride (98-107) mmol/L Carbon Dioxide (22-29) mmol/L Anion Gap (5-19) BUN (8-23) mg/dL Creatinine (0.5-0.9) mg/dL GFR Calculation Glucose (65-115) mg/dL Calculated Osmolal ity (285-295) mOsm/k g Lactic Acid 1.6 (0.5-2.2) mmol/L Calcium (8.5-10.5) mg/dL Total Bilirubin (0.15-1.2) mg/dL AST (0-32) U/L ALT (0-33) U/L Alkaline Phosphata se (35-105) IU/L Troponin T Gen 5 n g/L 13 H (0-10) ng/L NT-Pro-B Natriuret Pep (0-450) pg/mL Total Protein (6.6-8.7) g/dL Albumin (3.5-5.2) g/dL Globulin (1.3-4.6) g/dL Influenza Type A A g Negative (Negative) Influenza Type B A g Negative (Negative) SARS-CoV-2 Ag (Rap id) (Negative) 09/15/20 Range/Units 13:52 WBC (4.0-10.0) 10^3/ uL RBC (4.1-5.3) 10^6/u L Hgb (11.5-15.3) g/dL Hct (37.0-47.0) % MCV (81-99) fL MCH (28.0-34.0) pg MCHC (30.0-36.0) g/dL RDW (12.1-15.1) % Plt Count (130-400) 10^3/c mm MPV (7.4-10.4) fL Neut % (Auto) % Lymph % (Auto) % [place] % (Auto) % Eos % (Auto) % Baso % (Auto) % Neut # (Auto) (1.8-7.7) 10^3/u L Lymph # (Auto) (0.8-4.8) 10^3/u L [place] # (Auto) (0.2-0.9) 10^3/u L Eos # (Auto) (0.0-0.8) 10^3/u L Baso # (Auto) (0.0-0.1) 10^3/u L Nucleated RBC % (a uto) % Nucleated RBCs # /100WBC D-Dimer (0-0.59) ug/mIFE U Sodium (136-145) mmol/L Potassium (3.5-5.1) mmol/L Chloride (98-107) mmol/L Carbon Dioxide (22-29) mmol/L Anion Gap (5-19) BUN (8-23) mg/dL Creatinine (0.5-0.9) mg/dL GFR Calculation Glucose (65-115) mg/dL Calculated Osmolal ity (285-295) mOsm/k g Lactic Acid (0.5-2.2) mmol/L Calcium (8.5-10.5) mg/dL Total Bilirubin (0.15-1.2) mg/dL AST (0-32) U/L ALT (0-33) U/L Alkaline Phosphata se (35-105) IU/L Troponin T Gen 5 n g/L (0-10) ng/L NT-Pro-B Natriuret Pep (0-450) pg/mL Total Protein (6.6-8.7) g/dL Albumin (3.5-5.2) g/dL Globulin (1.3-4.6) g/dL Influenza Type A A g (Negative) Influenza Type B A g (Negative) SARS-CoV-2 Ag (Rap id) Negative (Negative) Discharge Plan Discharge Patient Disposition: Home Clinical Impression: Acute exacerbation of chronic obstructive airways disease Condition: Stable Prescriptions: New azithromycin 250 mg tablet 250 mg PO DAILY Qty: 6 RF: 0 albuterol sulfate 90 mcg/actuation HFA aerosol inhaler 2 inh inhalation Q6H PRN (Reason: shortness of breath or wheezing) Qty: 6.7 RF: 0 Medrol (Mamadou) 4 mg tablets,dose pack See Rx Instructions .ROUTE .COMPLEX Qty: 21 RF: 0 No Action fluticasone propion-salmeterol [Advair Diskus] 250-50 mcg/dose Blister With Device 1 puff inhalation BID.RESPIRATORY Qty: 1 RF: 0 Ventolin HFA 90 mcg/actuation HFA aerosol inhaler 1 puff inhalation Q4H PRN (Reason: Shortness Of Breath) RF: 0 Spiriva with HandiHaler 18 mcg capsule, w/inhalation device 18 mcg inhalation DAILY RF: 0 Discharge Orders: Discharge ED (Routine); Ordered 09/15/20 Ordered By: Russell Howell Referrals: Bibiana Hatfield FNP [Primary Care Provider] - Discharge Diet: Usual diet Discharge Activity: Resume usual activity Patient Instructions: Chronic Obstructive Pulmonary Disease (ED) Activity Restrictions/Additional Instructions: You have a COPD exacerbation. Please take the prednisone and azithromycin as directed. You may also use the albuterol inhaler if you need it or run out of it at home. Return to the ER with worsening symptoms otherwise follow-up with your primary care physician in a couple days to monitor improvement. Coding Level of Care Code ED Hand Woodworking Sander for Rickyg Fwd Exam Comprehensive
[2020-09-15 13:55] VITALS: BP 184/111; PULSE 73; RESP 26; O2SAT 96
[2020-09-15 14:03] LABS: Basophils # 0.1 10^3/uL (0.0-0.1); Basophils % 1.4 %; Eosinophils # 0.3 10^3/uL (0.0-0.8); Eosinophils % 5.9 %; Hematocrit 48.7 % (37.0-47.0); Hemoglobin 15.5 g/dL (11.5-15.3); Lymphocytes # 1.7 10^3/uL (0.8-4.8); Lymphocytes % 29.5 %; Mean Corpuscular HGB Conc 31.8 g/dL (30.0-36.0); Mean Corpuscular Hemoglobin 29.1 pg (28.0-34.0); Mean Corpuscular Volume 91.5 fL (81-99); Mean Platelet Volume 10.6 fL (7.4-10.4); Monocytes # 0.4 10^3/uL (0.2-0.9); Monocytes % 6.4 %; Neutrophils # 3.19 10^3/uL (1.8-7.7); Neutrophils % 56.6 %; Nucleated Red Blood Cells % 0 %; Platelet Count 217 10^3/cmm (130-400); Red Blood Count 5.32 10^6/uL (4.1-5.3); Red Cell Distribution Width 13.2 % (12.1-15.1); White Blood Count 5.6 10^3/uL (4.0-10.0)
[2020-09-15 14:06] VITALS: PULSE 73; RESP 26; O2SAT 96
[2020-09-15 14:32] LABS: Influenza A by IFA Negative (Negative); Influenza B by IFA Negative (Negative); SARS Covid-2 Antigen Negative (Negative)
[2020-09-15 14:49] LABS: D Dimer 1.47 ug/mIFEU (0-0.59)
[2020-09-15 14:51] LABS: Lactic Sepsis W/Reflex 1.6 mmol/L (0.5-2.2)
[2020-09-15 14:55] LABS: Troponin T (5th) Once 13 ng/L (0-10)
[2020-09-15] MEDS: sodium chloride 0.9% 500 ML 999 ML IV (15:03)
[2020-09-15 15:04] VITALS: BP 132/94; PULSE 72; RESP 30; O2SAT 94
[2020-09-15 15:04] LABS: Alanine Aminotransferase 10 U/L (0-33); Alkaline Phosphatase 96 IU/L (35-105); Anion Gap 14.5 (5-19); Aspartate Amino Transferase 18 U/L (0-32); Blood Urea Nitrogen 16 mg/dL (8-23); Calcium 9.4 mg/dL (8.5-10.5); Carbon Dioxide 30 mmol/L (22-29); Chloride 98 mmol/L (98-107); Globulin 2.9 g/dL (1.3-4.6); Glucose 74 mg/dL (65-115); NT Pro B Type Natriuretic Pept 1093 pg/mL (0-450); Osmolality Calculated 286 mOsm/kg (285-295); Potassium 4.5 mmol/L (3.5-5.1); Sodium 138 mmol/L (136-145); Total Bilirubin 0.7 mg/dL (0.15-1.2); Total Protein 6.9 g/dL (6.6-8.7)
--- NOTE | 2020-09-15 15:31 | CTR_ITS ---
PROCEDURE INFORMATION: Exam: CT Angiography Chest With Contrast Exam date and time: 09/15/2020 3:45 PM Age: 80 years old Clinical indication: Shortness of breath; Additional info: Dyspnea TECHNIQUE: Imaging protocol: Computed tomographic angiography of the chest with intravenous contrast. 3D rendering (Not supervised by radiologist): MIP and/or 3D reconstructed images were created by the technologist. Radiation optimization: All CT scans at this facility use at least one of these dose optimization techniques: automated exposure control; mA and/or kV adjustment per patient size (includes targeted exams where dose is matched to clinical indication); or iterative reconstruction. Contrast material: OMNI 350; Contrast volume: 95 ml; Contrast route: INTRAVENOUS (IV); COMPARISON: CT chest wo con [id number] 08/02/2020 1:38 PM RADIATION DOSE METRICS: Total DLP (mGy-cm): 339.13 FINDINGS: Pulmonary arteries: Normal. No pulmonary emboli. Aorta: Unremarkable. No aortic aneurysm. No aortic dissection. Lungs: Chronic emphysematous changes. Pleural space: Unremarkable. No pneumothorax. No pleural effusion. Heart: Unremarkable. No cardiomegaly. No pericardial effusion. Lymph nodes: Unremarkable. No enlarged lymph nodes. Bones/joints: Unremarkable. No acute fracture. Soft tissues: Unremarkable. CT/CT angio chest PE protcl [id number] IMPRESSION: No pulmonary embolism. Radiation Dose CTDIVOL = (mGy): DLP = 339.13 (mGy-cm)
[2020-09-15] MEDS: iohexol 350 mg/mL 100 mL Btl IV (15:59)
[2020-09-15 17:50] VITALS: BP 165/108; PULSE 86; RESP 18; O2SAT 94
[2020-09-15] MEDS: azithromycin 250 mg Tablet 500 MG PO (17:55)
[2020-09-15] MEDS: predniSONE 20 mg Tablet 40 MG PO (17:55)
== END 2020-09-15 17:50 | disposition home or self-care (01) ==
PROVIDERS: Emergency Provider Family Medicine; PCP Nurse Practitioner
DX: J44.1 Chronic obstructive pulmonary disease with (acute) exacerbation (principal); E78.5 Hyperlipidemia, unspecified; I10 Essential (primary) hypertension; Z87.891 Personal history of nicotine dependence
CPT/HCPCS: 12345; 71045; 71275; 80053; 83605; 83880; 84484; 85025; 85378; 87426; 87804; 93005; 94640; 99283; 99284; J3535; J7040; J7512; Q0144; Q9967

== ENCOUNTER 2020-11-26 07:49 | Emergency (ER) | payer OTHER, MEDICARE, SELFPAY ==
[2020-11-26 07:53] VITALS: BP 157/94; PULSE 84; RESP 22; TEMP 36.4; O2SAT 97; BMI 17.3
[2020-11-26 08:02] VITALS: BP 157/83; PULSE 79; RESP 24; O2SAT 96
--- NOTE | 2020-11-26 08:32 | XR_ITS ---
WS: [id number] Portable AP upright chest, 11/26/2020 Clinical Data: dyspnea/cough Comparison: Portable chest, 09/15/2020. Findings: No nodules, masses or effusions are seen. The heart is normal. The pulmonary vascularity is not increased. No pneumonia or pneumothorax is seen. The diaphragms are flattened. The aortic arch a nd descending aorta show minimal calcification and tortuosity. There are calcified granulomas in both sedrick extending into the lower lung peripheries. Monitor leads are on the chest wall. XR/XR chest 1V portable [id number] Impression: Hyperinflation and atherosclerosis.
--- NOTE | 2020-11-26 08:33 | ECG_ITS ---
[facility] Test Date: 2020-11-26 Pat Name: Devorah Vickers Department: Room: Gender: Female Staff Consultant: : 1940 Requested By: Lobo Trejo Order Number: [id number] Gama MD: Kg Victor M.D. Measurements Intervals [place] Rate: 73 P: 74 [place]: 197 QRS: -73 QRSD: 124 T: 77 QT: 425 QTc: 469 Interpretive Statements SINUS RHYTHM POSSIBLE LEFT ATRIAL ENLARGEMENT [-0.1mV P WAVE IN V1/V2] LEFT AXIS DEVIATION [QRS AXIS < -30] LEFT BUNDLE BRANCH BLOCK [120+ ms QRS DURATION, 80+ ms Q/S IN V1/V2, 85+ ms R IN I/aVL/V5/V6] Compared to ECG 09/15/2020 13:49:17 No significant changes Electronically Signed On 11-26-2020 18:29:00 SHEARER PRINTED [employer] BOARDS by Kg Victor M.D. [id number]
--- NOTE | 2020-11-26 08:55 | ED_ITS ---
HPI - SOB/Dyspnea General: Chief Complaint: Shortness of Breath/Dyspnea Stated Complaint: DIFFICULTY BREATHING Time Seen by Provider: 11/26/20 07:57 History of Present Illness: HPI Narrative: 80-year-old female presents emergency room with complaints of shortness of breath. Began last night and worsened this morning its worse with exertion she denies any chest pain. She has a history of COPD. She states she recently ran out of her inhalers. For a time she was on oxygen but for the last 2 months she has not been on it at all. She has her usual baseline cough but her sputum has increased a little bit. She denies fever denies any other symptoms no abdominal pain chest pain dysuria urgency or frequency. At the time I seen the patient she states her breathing is completely resolved back to normal. MD elicited complaint: shortness of breath and cough Pertinent past history: COPD Onset (ago): day(s) Context: occurred during exertion Timing: intermittent and improved Severity: mild Exacerbating factors: exertion and coughing Relieving factors: rest Known history of: COPD Associated symptoms: Reports cough; Deny abdominal pain, chest congestion, chest pain, diaphoresis, dizziness, extremity pain, fever(s), hemoptysis, lightheadedness, myalgias, nausea, palpitations, paresthesias, polydipsia, polyuria, rash, sense of impending doom, syncope or vomiting Treatment prior to arrival: none Review of Systems Const: Denies: fever(s) or diaphoresis ENMT: Denies: throat pain, ear or mastoid pain, nasal discharge or nasal congestion Card: Denies: chest pain, palpitations, lightheadedness or syncope Resp: Denies: hemoptysis or chest congestion GI: Denies: abdominal pain, nausea or vomiting : Denies: flank pain, difficulty voiding, dysuria, urinary frequency or urinary urgency Musc: Denies: extremity pain Skin/Breast: Denies: rash or pruritus Neuro: Denies: dizziness Endo: Denies: polyuria or polydipsia [facility] ED PFSH: Medical History COPD (chronic obstructive pulmonary disease) History of skin cancer Hyperlipidemia Hypertension Surgical History S/P skin biopsy Family History Other CAD (coronary artery disease) Social History Smoking and tobacco status: former smoker Alcohol intake: former Physical Exam Const: COMMON NORMALS: no acute distress GENERAL APPEARANCE: cooperative and comfortable ORIENTATION/CONSCIOUSNESS: Yes awake, Yes oriented to person, Yes oriented to place and Yes oriented to time HENMT: COMMON NORMALS: normocephalic, atraumatic and hearing grossly normal bilaterally HEAD & SCALP: normocephalic and atraumatic Neck/C-Spine: COMMON NORMALS: no JVD Resp: AUSCULTATION: rhonchi and wheezes Cardio: COMMON NORMALS: no JVD, regular rate, regular rhythm and No murmurs present (Cardio) RATE: regular rate RHYTHM: regular rhythm GI: COMMON NORMALS: Soft to palpation and No hepatosplenomegaly present AUSCULTATION: Yes normoactive bowel sounds PALPATION: Yes Soft to palpation, No Tenderness to palpation present (GI), No Guarding due to palpation present (GI) and Yes No hepatosplenomegaly present Extremity: COMMON NORMALS: normal to inspection, capillary refill normal, no clubbing, cyanosis or edema, no calf tenderness and no pedal edema Neuro: SENSORIUM/ORIENTATION: Yes oriented to person, Yes oriented to place and Yes oriented to time Skin: COMMON NORMALS: no rashes or lesions noted GENERAL SKIN EXAM: no rashes or lesions noted Course Vital Signs: Vital signs: Vital Signs Temperature 97.5 F L 11/26/20 07:53 Pulse Rate 69 11/26/20 09:19 Respiratory Rate 22 H 11/26/20 09:19 Blood Pressure 157/83 11/26/20 08:02 Pulse Oximetry 97 11/26/20 09:39 MDM - SOB/Dyspnea MDM Narrative: Medical decision making narrative: When I first came in to see the patient states she is feeling much better although she still having the change in her cough production. Home O2 eval she only drops to 93 surprisingly. Her baseline O2 sat has been in the upper 90s despite her obvious significant COPD both clinically and on her chest x-ray. I think all of this is predicated by her albuterol running out. We will refill her albuterol and going to do a PCR test for Covid her rapid was negative. Additionally we will put her on steroids and a short course of Levaquin if she has any worsening symptoms return. Lab Data: Labs: Lab Results 11/26/20 11/26/20 11/26/20 Range/Units 09:10 09:10 09:10 WBC 4.6 (4.0-10.0) 10^3/ uL RBC 4.73 (4.1-5.3) 10^6/u L Hgb 13.8 (11.5-15.3) g/dL Hct 44.1 (37.0-47.0) % MCV 93.2 (81-99) fL MCH 29.2 (28.0-34.0) pg MCHC 31.3 (30.0-36.0) g/dL RDW 13.2 (12.1-15.1) % Plt Count 165 (130-400) 10^3/c mm MPV 12.2 H (7.4-10.4) fL Neut % (Auto) 46.9 % Lymph % (Auto) 34.1 % Murray % (Auto) 6.5 % Eos % (Auto) 10.6 % Baso % (Auto) 1.7 % Neut # (Auto) 2.17 (1.8-7.7) 10^3/u L Lymph # (Auto) 1.6 (0.8-4.8) 10^3/u L Murray # (Auto) 0.3 (0.2-0.9) 10^3/u L Eos # (Auto) 0.5 (0.0-0.8) 10^3/u L Baso # (Auto) 0.1 (0.0-0.1) 10^3/u L Nucleated RBC % (a uto) 0 % Nucleated RBCs # 0.0 /100WBC Sodium 138 (136-145) mmol/L Potassium 4.8 (3.5-5.1) mmol/L Chloride 102 (98-107) mmol/L Carbon Dioxide 29 (22-29) mmol/L Anion Gap 11.8 (5-19) BUN 18 (8-23) mg/dL Creatinine 0.8 (0.5-0.9) mg/dL GFR Calculation Not Reportable Glucose 78 (65-115) mg/dL Calculated Osmolal ity 287 (285-295) mOsm/k g Calcium 9.1 (8.5-10.5) mg/dL Total Bilirubin 0.3 (0.15-1.2) mg/dL AST 18 (0-32) U/L ALT 9 (0-33) U/L Alkaline Phosphata se 87 (35-105) IU/L Creatine Kinase 82 (26-192) U/L Troponin T Baselin e 12 H (0-10) ng/L Total Protein 6.7 (6.6-8.7) g/dL Albumin 3.8 (3.5-5.2) g/dL Globulin 2.9 (1.3-4.6) g/dL Urine Color (Yellow) Urine Appearance (CLEAR) Urine pH (5-7) Ur Specific Gravit y (1.005-1.030) Urine Protein (Negative) Urine Glucose (UA) (Normal) Urine Ketones (Negative) Urine Blood (Negative) Urine Nitrate (Negative) Urine Bilirubin (Negative) Urine Urobilinogen (Negative) mg/dL Ur Leukocyte Mattie ase (Negative) SARS-CoV-2 Ag (Rap id) (Negative) 11/26/20 11/26/20 Range/Units 09:10 09:13 WBC (4.0-10.0) 10^3/ uL RBC (4.1-5.3) 10^6/u L Hgb (11.5-15.3) g/dL Hct (37.0-47.0) % MCV (81-99) fL MCH (28.0-34.0) pg MCHC (30.0-36.0) g/dL RDW (12.1-15.1) % Plt Count (130-400) 10^3/c mm MPV (7.4-10.4) fL Neut % (Auto) % Lymph % (Auto) % Murray % (Auto) % Eos % (Auto) % Baso % (Auto) % Neut # (Auto) (1.8-7.7) 10^3/u L Lymph # (Auto) (0.8-4.8) 10^3/u L Murray # (Auto) (0.2-0.9) 10^3/u L Eos # (Auto) (0.0-0.8) 10^3/u L Baso # (Auto) (0.0-0.1) 10^3/u L Nucleated RBC % (a uto) % Nucleated RBCs # /100WBC Sodium (136-145) mmol/L Potassium (3.5-5.1) mmol/L Chloride (98-107) mmol/L Carbon Dioxide (22-29) mmol/L Anion Gap (5-19) BUN (8-23) mg/dL Creatinine (0.5-0.9) mg/dL GFR Calculation Glucose (65-115) mg/dL Calculated Osmolal ity (285-295) mOsm/k g Calcium (8.5-10.5) mg/dL Total Bilirubin (0.15-1.2) mg/dL AST (0-32) U/L ALT (0-33) U/L Alkaline Phosphata se (35-105) IU/L Creatine Kinase (26-192) U/L Troponin T Baselin e (0-10) ng/L Total Protein (6.6-8.7) g/dL Albumin (3.5-5.2) g/dL Globulin (1.3-4.6) g/dL Urine Color Straw (Yellow) Urine Appearance Clear (CLEAR) Urine pH 7 (5-7) Ur Specific Gravit y 1.010 (1.005-1.030) Urine Protein Neg (Negative) Urine Glucose (UA) Norm (Normal) Urine Ketones Negative (Negative) Urine Blood Neg (Negative) Urine Nitrate Negative (Negative) Urine Bilirubin Neg (Negative) Urine Urobilinogen Norm (Negative) mg/dL Ur Leukocyte Mattie ase Negative (Negative) SARS-CoV-2 Ag (Rap id) Negative (Negative) Discharge Plan Discharge Patient Disposition: Home Clinical Impression: Acute exacerbation of chronic obstructive airways disease Condition: Stable Prescriptions: New dexamethasone 6 mg tablet 6 mg PO DAILY Qty: 7 RF: 0 albuterol sulfate 90 mcg/actuation HFA aerosol inhaler 2 inh INHALATION Q4H PRN (Reason: shortness of breath or wheezing) Qty: 18 RF: 0 levofloxacin 500 mg tablet 500 mg PO DAILY 7 Days RF: 0 No Action fluticasone propion-salmeterol [Advair Diskus] 250-50 mcg/dose Blister With Device 1 puff inhalation BID.RESPIRATORY Qty: 1 RF: 0 Spiriva with HandiHaler 18 mcg capsule, w/inhalation device 18 mcg inhalation DAILY RF: 0 albuterol sulfate 90 mcg/actuation HFA aerosol inhaler 2 inh inhalation Q6H PRN (Reason: shortness of breath or wheezing) Qty: 6.7 RF: 0 Discharge Orders: Discharge ED (Routine); Ordered 11/26/20 Ordered By: Lobo Amaya Referrals: Bibiana Hatfield FNP [Primary Care Provider] - Discharge Diet: Usual diet Discharge Activity: Resume usual activity Patient Instructions: Opioid Safety Activity Restrictions/Additional Instructions: Follow-up with your primary care doctor within the week. Recommend that you remain self quarantine until the final Covid results have returned. Coding Level of Care Code ED Animal Rehabilitator for Lesley Fwd Exam Comprehensive
[2020-11-26 09:19] VITALS: PULSE 69; RESP 22; O2SAT 98
[2020-11-26 09:24] LABS: Add Urine Microscopic? NO
[2020-11-26 09:30] LABS: Basophils # 0.1 10^3/uL (0.0-0.1); Basophils % 1.7 %; Eosinophils # 0.5 10^3/uL (0.0-0.8); Eosinophils % 10.6 %; Hematocrit 44.1 % (37.0-47.0); Hemoglobin 13.8 g/dL (11.5-15.3); Lymphocytes # 1.6 10^3/uL (0.8-4.8); Lymphocytes % 34.1 %; Mean Corpuscular HGB Conc 31.3 g/dL (30.0-36.0); Mean Corpuscular Hemoglobin 29.2 pg (28.0-34.0); Mean Corpuscular Volume 93.2 fL (81-99); Mean Platelet Volume 12.2 fL (7.4-10.4); Monocytes # 0.3 10^3/uL (0.2-0.9); Monocytes % 6.5 %; Neutrophils # 2.17 10^3/uL (1.8-7.7); Neutrophils % 46.9 %; Nucleated Red Blood Cells % 0 %; Platelet Count 165 10^3/cmm (130-400); Red Blood Count 4.73 10^6/uL (4.1-5.3); Red Cell Distribution Width 13.2 % (12.1-15.1); White Blood Count 4.6 10^3/uL (4.0-10.0)
[2020-11-26 09:39] VITALS: O2SAT 93; O2SAT 97
[2020-11-26 09:50] LABS: Bilirubin Urine Neg (Negative); Blood Urine Neg (Negative); Glucose Urine UA Norm (Normal); Ketones Urine Negative (Negative); Leukocyte Esterase Urine Negative (Negative); Nitrate Urine Negative (Negative); Protein Urine Neg (Negative); Urine Appearance Clear (CLEAR); Urine Color Straw (Yellow); Urobilinogen Urine Norm (Negative); pH Urine 7 (5-7)
[2020-11-26 09:52] LABS: Alanine Aminotransferase 9 U/L (0-33); Albumin Level 3.8 g/dL (3.5-5.2); Alkaline Phosphatase 87 IU/L (35-105); Anion Gap 11.8 (5-19); Aspartate Amino Transferase 18 U/L (0-32); Blood Urea Nitrogen 18 mg/dL (8-23); Calcium 9.1 mg/dL (8.5-10.5); Carbon Dioxide 29 mmol/L (22-29); Chloride 102 mmol/L (98-107); Creatine Phosphokinase 82 U/L (26-192); Globulin 2.9 g/dL (1.3-4.6); Glucose 78 mg/dL (65-115); Osmolality Calculated 287 mOsm/kg (285-295); Potassium 4.8 mmol/L (3.5-5.1); Sodium 138 mmol/L (136-145); Total Bilirubin 0.3 mg/dL (0.15-1.2); Total Protein 6.7 g/dL (6.6-8.7)
[2020-11-26 09:54] LABS: Troponin(5th) Baseline 12 ng/L (0-10)
[2020-11-26 10:04] LABS: SARS Covid-2 Antigen Negative (Negative)
[2020-11-26 10:35] VITALS: BP 156/85; PULSE 68; RESP 22; O2SAT 99
[2020-11-27 19:02] LABS: Coronavirus Test Green County Not Detected
--- NOTE | 2020-11-28 13:47 | PC.NURSE ---
Pt contacted about negative COVID result.
== END 2020-11-26 10:35 | disposition home or self-care (01) ==
PROVIDERS: Emergency Provider Family Medicine; PCP Nurse Practitioner
DX: J44.1 Chronic obstructive pulmonary disease with (acute) exacerbation (principal); E78.5 Hyperlipidemia, unspecified; I10 Essential (primary) hypertension; Z87.891 Personal history of nicotine dependence
CPT/HCPCS: 71045; 80053; 81003; 82550; 84484; 85025; 87426; 87635; 93005; 99284

== ENCOUNTER 2021-12-25 21:13 | Observation (INO) | payer OTHER, MEDICARE, SELFPAY ==
[2021-12-25 21:14] VITALS: BP 116/74; PULSE 81; RESP 20; TEMP 36.7; O2SAT 98; BMI 16.1
--- NOTE | 2021-12-25 21:17 | ED_ITS ---
HPI - Weakness General: Chief complaint: Weakness Stated complaint: weakness Time Seen by Provider: 12/25/21 21:17 History of Present Illness: Ms. Vickers is a 81-year-old lady with history of COPD, hypertension hyper hyperlipidemia who presents to the emergency department due to falls and blood pressure concerns. She reports some period of time now having lightheadedness which was perhaps more pronounced today. This is random at times and not positional or temporally related to any particular activity that she can think of. Because of this she has had multiple falls. Family is concerned regarding these falls and so she was brought to the emergency department. She herself seems largely unconcerned regarding these falls. She does live alone. She reports eating adequately though is clearly cachectic on exam. She denies chest pain, shortness of breath, or anything focal symptoms. No other specific changes in health, exacerbating, or alleviating factors identified. Onset (ago): unknown Duration: intermittent and progressively worsening Severity: severe Relieving factors: none Exacerbating factors: none Review of Systems General: Reports: 10 or more systems reviewed and unremarkable except in HPI and below PFSH ED PFSH: Medical History COPD (chronic obstructive pulmonary disease) History of skin cancer Hyperlipidemia Hypertension Surgical History S/P skin biopsy Family History Other CAD (coronary artery disease) Social History Smoking and tobacco status: former smoker Alcohol intake: former Household members: none Physical Exam Const: COMMON NORMALS: alert GENERAL APPEARANCE: cooperative, disheveled and frail appearing NUTRITIONAL APPEARANCE: cachectic OTHER: Patient has stool on herself HENMT: COMMON NORMALS: normocephalic and atraumatic HEAD & SCALP: normocephalic and atraumatic THROAT: posterior oropharynx normal Eye: COMMON NORMALS: conjunctivae normal CONJUNCTIVA: Yes conjunctivae normal SCLERA: sclerae normal Neck/C-Spine: COMMON NORMALS: supple GENERAL: Yes trachea midline Resp: EFFORT & INSPECTION: Yes able to speak in complete sentences AUSCULTATION: diminished lung sounds Cardio: COMMON NORMALS: regular rate and regular rhythm RATE: regular rate RHYTHM: regular rhythm GI: COMMON NORMALS: Soft to palpation PALPATION: Yes Soft to palpation and No Tenderness to palpation present (GI) PERCUSSION: normal to percussion Extremity: GENERAL: Yes normal exam except as noted and No edema Neuro: COMMON NORMALS: CN's II-XII intact bilaterally, moves all extremities, no focal motor deficits and no sensory deficits noted SENSORIUM/ORIENTATION: Yes alert and No Orientation impaired Course ED course: - Patient was seen and evaluated by me at bedside - Patient placed on cardiac monitors, IV access obtained - Initial evaluation notable for exam as above, frail and cachectic, unkempt with stool on body - Labs and xrays personally interpreted by me. EKG at 2133 interpreted by me showing sinus rhythm, first-degree AV block, left bundle branch block. No STEMI. - Labs notable for no significant hematologic abnormality. Metabolic panel with evidence of dehydration, possible SALVATORE. Transaminitis of uncertain etiology. N egative delta troponin. Urinalysis not concerning for urinary tract infection. - Imaging notable for emphysema without lobar consolidation or pneumothorax. CT head and neck negative for acute traumatic injury. - Upon serial reexamination after treatment the patient was similar - Based on patient history, evaluation, and testing as interpreted the most likely cause of the patient's condition is failure of self-care with recurrent falls. - The results of ED evaluation were discussed with the patient including plan for admission due to requirement for level of care not available if discharged t o prevent significant worsening/deterioration. - Hospitalist service contacted and agreed admit the patient to observation. - Patient was admitted without further deterioration or significant events. Note: Click bubbles or prepopulated diez in note writing are used for assistance with data collection and billing and are inherently more limited than narrative and other text portions of this note. Please use narrative for additional clinical history and defer to narrative/free test for any case of contradictory information. If information appears in only free text or click bubble it janet uld be considered present or absent as reported. Please contact note web content writer for clarifications of clinical information or contradictory information. MDM is a brief summary, contradictory or erroneous seeming information should be clarified and full note should be reviewed. Vital Signs: Vital signs: Vital Signs Temperature 98.5 F 12/28/21 14:53 Pulse Rate 71 12/28/21 14:53 Respiratory Rate 13 12/28/21 14:53 Blood Pressure 104/68 12/28/21 14:53 Pulse Oximetry 96 12/28/21 14:53 MDM - Weakness Medical Decision Making 81-year-old lady who lives alone presenting due to recurrent falls. She is cachectic appearing on exam and has stool on herself. Admitted for further evaluation and management with concern for failure of self-care. Medical Records I reviewed the patient's medical records. Lab Data I reviewed the patient's lab results. : 12/28/21 04:44 12/28/21 04:44 Radiology Impressions Cervical Spine CT 12/25/21 21:26 IMPRESSION: 1. No acute cervical spinal injury demonstrated by CT. 2. Degenerative changes of the cervical spine. Head CT 12/25/21 21:26 IMPRESSION: 1. No acute intracranial hemorrhage, mass effect or midline shift. 2. Involutional changes of the brain in keeping with the patient's age, with findings of chronic microvascular ischemic disease. 3. 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 Chest X-Ray 12/27/21 14:11 IMPRESSION: No acute chest findings. Laboratory Results WBC 7.6 10^3/uL (4.0-10.0) 12/25/21 20:45 RBC 4.63 10^6/uL (4.1-5.3) 12/25/21 20:45 Hgb 13.2 g/dL (11.5-15.3) 12/25/21 20:45 Hct 40.5 % (37.0-47.0) 12/25/21 20:45 MCV 87.5 fl (81-99) 12/25/21 20:45 MCH 28.5 pg (28.0-34.0) 12/25/21 20:45 MCHC 32.6 g/dL (30.0-36.0) 12/25/21 20:45 RDW 13.9 % (12.1-15.1) 12/25/21 20:45 Plt Count 135 10^3/cmm (130-400) 12/25/21 20:45 MPV 12.1 fL (7.4-10.4) H 12/25/21 20:45 Neut % (Auto) 89.0 % 12/25/21 20:45 Lymph % (Auto) 5.9 % 12/25/21 20:45 [place] % (Auto) 4.7 % 12/25/21 20:45 Eos % (Auto) 0.0 % 12/25/21 20:45 Baso % (Auto) 0.3 % 12/25/21 20:45 Neut # (Auto) 6.77 10^3/uL (1.8-7.7) 12/25/21 20:45 Lymph # (Auto) 0.5 10^3/uL (0.8-4.8) L 12/25/21 20:45 [place] # (Auto) 0.4 10^3/uL (0.2-0.9) 12/25/21 20:45 Eos # (Auto) 0.0 10^3/uL (0.0-0.8) 12/25/21 20:45 Baso # (Auto) 0.0 10^3/uL (0.0-0.1) 12/25/21 20:45 Nucleated RBC % (auto) 0 % 12/25/21 20:45 Nucleated RBCs # 0.0 /100WBC 12/25/21 20:45 Sodium 135 mmol/L (136-145) L 12/25/21 22:50 Potassium 3.7 mmol/L (3.5-5.1) 12/25/21 22:50 Chloride 97 mmol/L (98-107) L 12/25/21 22:50 Carbon Dioxide 25 mmol/L (22-29) 12/25/21 22:50 Anion Gap 16.7 (5-19) 12/25/21 22:50 BUN 32 mg/dL (8-23) H 12/25/21 22:50 Creatinine 1.2 mg/dL (0.5-0.9) H 12/25/21 22:50 GFR Calculation Not Reportable 12/25/21 22:50 Glucose 193 mg/dL (65-115) H 12/25/21 22:50 Calculated Osmolality 292 mOsm/kg (285-295) 12/25/21 22:50 Calcium 9.7 mg/dL (8.5-10.5) 12/25/21 22:50 Total Bilirubin 0.5 mg/dL (0.15-1.2) 12/25/21 22:50 AST 44 U/L (0-32) H 12/25/21 22:50 ALT 15 U/L (0-33) 12/25/21 22:50 Alkaline Phosphatase 116 IU/L (35-105) H 12/25/21 22:50 Troponin T Baseline 43 ng/L (0-10) H 12/25/21 20:45 Troponin T 120 Minute 46.37 ng/L (0-10) H 12/25/21 22:50 Delta Troponin T 3.37 ABS# (0-10) 12/25/21 22:50 NT-Pro-B Natriuret Pep 1098 pg/mL (0-450) H 12/25/21 22:50 Total Protein 5.9 g/dL (6.6-8.7) L 12/25/21 22:50 Albumin 3.1 g/dL (3.5-5.2) L 12/25/21 22:50 Globulin 2.8 g/dL (1.3-4.6) 12/25/21 22:50 TSH 1.43 uIU/mL (0.27-4.20) 12/25/21 22:50 Urine Color Yellow (Yellow) 12/25/21 22:50 Urine Appearance Clear (CLEAR) 12/25/21 22:50 Urine pH 5 (5-7) 12/25/21 22:50 Ur Specific Rayle 1.020 (1.005-1.030) 12/25/21 22:50 Urine Protein Neg (Negative) 12/25/21 22:50 Urine Glucose (UA) Norm (Normal) 12/25/21 22:50 Urine Ketones Negative (Negative) 12/25/21 22:50 Urine Blood Neg (Negative) 12/25/21 22:50 Urine Nitrate Negative (Negative) 12/25/21 22:50 Urine Bilirubin Neg (Negative) 12/25/21 22:50 Urine Urobilinogen Norm mg/dL (Negative) 12/25/21 22:50 Ur Leukocyte Esterase Negative (Negative) 12/25/21 22:50 Ethyl Alcohol < 10 mg/dL (0-10) 12/25/21 22:50 Discharge Plan Discharge Patient Disposition: Placed in Observation Admit Provider: Hossein Quick Clinical Impression: Syncope, Dehydration, SALVATORE (acute kidney injury), Adult failure to thrive, Deficit in activities of daily living (ADL) Discharge Diet: Regular Discharge Activity: As per PT/OT instructions Coding Level of Care Code ED Lifeguard for Lesley Acosta
--- NOTE | 2021-12-25 21:26 | CTR_ITS ---
PROCEDURE INFORMATION: Exam: CT Head Without Contrast Exam date and time: 12/25/2021 9:48 PM Age: 81 years old Clinical indication: Injury or trauma; Blunt trauma (contusions or hematomas); Without loss of consciousness; Patient HX: C/O being light headed w multiple recent falls; Additional info: Falls, lightheaded TECHNIQUE: Imaging protocol: Computed tomography of the head without contrast. Radiation optimization: All CT scans at this facility use at least one of these dose optimization techniques: automated exposure control; mA and/or kV adjustment per patient size (includes targeted exams where dose is matched to clinical indication); or iterative reconstruction. COMPARISON: CT head wo con* [id number] 03/26/2018 8:48 PM RADIATION DOSE METRICS: Total DLP (mGy-cm): 753.39 FINDINGS: Brain: There are global involutional changes of the brain which are in keeping with the patient's age. Periventricular hypodensities are nonspecific but most likely reflect chronic microvascular ischemic disease. Benign basal ganglia calcifications are noted. 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 There is no acute intracranial hemorrhage or abnormal extra-axial fluid collection identified. There is no intracranial mass effect or shift of midline structures. The cerda-white differentiation is preserved throughout. Cerebral ventricles: There is no sulcal or ventricular effacement. The basilar cisterns are open. No hydrocephalus. Paranasal sinuses: The visualized sinuses are unremarkable. Mastoid air cells: There is no mastoid effusion detected. Auditory system: There is probable cerumen in the left external auditory canal. Vasculature: Atherosclerotic vascular disease is noted at the level of the skull base. Bones/joints: No calvarial fracture or destructive osseous lesions are seen. Soft tissues: Unremarkable. CT/CT head wo con* [id number] IMPRESSION: 1. No acute intracranial hemorrhage, mass effect or midline shift. 2. Involutional changes of the brain in keeping with the patient's age, with findings of chronic microvascular ischemic disease. 3. 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
--- NOTE | 2021-12-25 21:26 | CTR_ITS ---
PROCEDURE INFORMATION: Exam: CT Cervical Spine Without Contrast Exam date and time: 12/25/2021 9:52 PM Age: 81 years old Clinical indication: Injury or trauma; Blunt trauma; Patient HX: C/O being light headed w multiple recent falls; Additional info: Fall, lightheaded TECHNIQUE: Imaging protocol: Computed tomography images of the cervical spine without contrast. Radiation optimization: All CT scans at this facility use at least one of these dose optimization techniques: automated exposure control; mA and/or kV adjustment per patient size (includes targeted exams where dose is matched to clinical indication); or iterative reconstruction. COMPARISON: CT head wo con* [id number] 12/25/2021 9:48 PM RADIATION DOSE METRICS: Total DLP (mGy-cm): 201.28 FINDINGS: Bones/joints: No anterior wedging deformity. No acute lucent fracture lines visualized. There are diffuse spondylitic changes of the cervical spine. Facet arthropathy is also noted. Discs/Spinal canal/Neural foramina: Central canal stenosis is moderate to severe at the C3-C4 and C4-C5 levels. Neural foraminal stenosis is seen at the C3-C4 through C6-C7 levels. Lungs: Lung apices are normal. CT/CT cervical spin wo con* [id number] IMPRESSION: 1. No acute cervical spinal injury demonstrated by CT. 2. Degenerative changes of the cervical spine.
--- NOTE | 2021-12-25 21:26 | XRR_ITS ---
PROCEDURE INFORMATION: Exam: XR Chest Exam date and time: 12/25/2021 9:55 PM Age: 81 years old Clinical indication: Injury or trauma; Fall; Blunt trauma (contusions or hematomas); Additional info: Falls TECHNIQUE: Imaging protocol: XR of the chest. Views: 1 view. COMPARISON: CR XR chest 1V portable [id number] 11/26/2020 8:46 AM FINDINGS: Lungs: Hyperinflation of the lungs, in keeping with emphysema. No alveolar consolidation. Pleural spaces: No pleural effusion. No pneumothorax. Heart/Mediastinum: Unremarkable. No cardiomegaly. Bones/joints: No acute displaced fracture is identified. XR/XR chest 1V portable [id number] IMPRESSION: 1. Emphysema. 2. No infiltrate or pleural effusion identified. 3. No acute displaced fracture is seen.
--- NOTE | 2021-12-25 21:27 | ECG_ITS ---
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 Measurements Intervals [place] Rate: 79 P: 96 SD: 208 QRS: -79 QRSD: 146 T: 94 QT: 419 QTc: 481 Interpretive Statements SINUS RHYTHM LEFT AXIS DEVIATION [QRS AXIS < -30] LEFT BUNDLE BRANCH BLOCK [120+ ms QRS DURATION, 80+ ms Q/S IN V1/V2, 85+ ms R IN I/aVL/V5/V6] Compared to ECG 11/26/2020 08:57:25 No significant changes Electronically Signed On 12-27-2021 9:15:33 CDT by Keyshawn Blount M.D. [id number]
[2021-12-25 21:34] LABS: Basophils % 0.3 %; Hematocrit 40.5 % (37.0-47.0); Hemoglobin 13.2 g/dL (11.5-15.3); Lymphocytes # 0.5 10^3/uL (0.8-4.8); Lymphocytes % 5.9 %; Mean Corpuscular HGB Conc 32.6 g/dL (30.0-36.0); Mean Corpuscular Hemoglobin 28.5 pg (28.0-34.0); Mean Corpuscular Volume 87.5 fl (81-99); Mean Platelet Volume 12.1 fL (7.4-10.4); Monocytes # 0.4 10^3/uL (0.2-0.9); Monocytes % 4.7 %; Neutrophils # 6.77 10^3/uL (1.8-7.7); Nucleated Red Blood Cells % 0 %; Platelet Count 135 10^3/cmm (130-400); Red Blood Count 4.63 10^6/uL (4.1-5.3); Red Cell Distribution Width 13.9 % (12.1-15.1); White Blood Count 7.6 10^3/uL (4.0-10.0)
[2021-12-25 21:53] LABS: Troponin(5th) Baseline 43 ng/L (0-10)
[2021-12-25 23:07] LABS: Add Urine Microscopic? NO; Charge for UA Resulting for Rev
[2021-12-25 23:11] VITALS: BP 122/70; PULSE 69; RESP 20; O2SAT 98
[2021-12-25 23:11] LABS: Bilirubin Urine Neg (Negative); Blood Urine Neg (Negative); Glucose Urine UA Norm (Normal); Ketones Urine Negative (Negative); Leukocyte Esterase Urine Negative (Negative); Nitrate Urine Negative (Negative); Protein Urine Neg (Negative); Urine Appearance Clear (CLEAR); Urine Color Yellow (Yellow); Urobilinogen Urine Norm (Negative); pH Urine 5 (5-7)
[2021-12-25 23:30] VITALS: BP 122/70; PULSE 73; RESP 16; O2SAT 98
[2021-12-25 23:40] LABS: Troponin 5 2HR 46.37 ng/L (0-10); Troponin 5 2HR Delta 3.37 ABS# (0-10)
[2021-12-25 23:49] LABS: Alanine Aminotransferase 15 U/L (0-33); Albumin Level 3.1 g/dL (3.5-5.2); Alkaline Phosphatase 116 IU/L (35-105); Anion Gap 16.7 (5-19); Aspartate Amino Transferase 44 U/L (0-32); Blood Urea Nitrogen 32 mg/dL (8-23); Calcium 9.7 mg/dL (8.5-10.5); Carbon Dioxide 25 mmol/L (22-29); Chloride 97 mmol/L (98-107); Globulin 2.8 g/dL (1.3-4.6); Glucose 193 mg/dL (65-115); NT Pro B Type Natriuretic Pept 1098 pg/mL (0-450); Osmolality Calculated 292 mOsm/kg (285-295); Potassium 3.7 mmol/L (3.5-5.1); Sodium 135 mmol/L (136-145); Thyroid Stimulating Hormone 1.43 uIU/mL (0.27-4.20); Total Bilirubin 0.5 mg/dL (0.15-1.2); Total Protein 5.9 g/dL (6.6-8.7)
[2021-12-25 23:51] LABS: Alcohol Level < 10 mg/dL (0-10)
[2021-12-26] VITALS (10 sets, daily range): BP systolic 102–167; BP diastolic 68–84; PULSE 62–80; RESP 16–18; TEMP 36.5–37.4; O2SAT 93–100
--- NOTE | 2021-12-26 00:45 | PM.HP ---
Providers/Chief Complaint Admitting Physician: Hossein Quick Primary Care Provider: ARNALDO Coley Chief Complaint: weakness History of Present Illness 81-year-old lady was brought in by EMS after she states she had fallen down on her lawn, with her cousin calling EMS, she states that she has been having a number of falls recently. While laying in bed during examination notes that that her legs are feeling heavy . There are reports of lightheadedness as well, although this may be coming from the family as she denies it. She seems to be unconcerned about her falls. Feels that some of them are due to her slipping on her socks. She lives alone. She states that her brother helps her with her groceries. She knows she is in the hospital, and can tell me the year. She cannot tell me about any of her medical conditions, tells me that she is generally fairly healthy apart from having a cold once in a while. She does not remember having any medication changes recently, but she cannot tell me what her medications are, although tells that she takes them, and that she manages them herself. She tells me that she pays bills herself from her check, and says that she does so by mail. In ER she was reported disheveled, covered in feces. Head CT without acute abnormality, with involutional changes of the brain keeping patient's age with findings of chronic microvascular ischemic disease. 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 CT cervical spine without acute cervical spinal injury, with degenerative changes. Chest x-ray with emphysema, no infiltrate. UA unremarkable. Noted mild hyponatremia, sodium 135. Noted acute kidney injury, creatinine 1.2. Mild abnormality AST 44, mild elevation of alk phos 116 compared to normal previously. Baseline troponin 43, 2-hour troponin 46.3 7. NT proBNP 1098 similar to prior. TSH is normal. With regards to CODE STATUS she states she would not want cardiopulmonary resuscitation in case of arrest. She states I am 81 years old, I do not necessarily want to see 90, if I do that is good if not that is okay too . Review of Systems Const: Denies: fever(s), chills, body aches or malaise Eyes: Denies: change in vision, eye discomfort or eye redness ENMT: Denies: throat pain, oral sores or ear or mastoid pain Card: Denies: chest pain, edema, pre-syncope or dyspnea on exertion Resp: Denies: dyspnea, productive cough, change in phlegm color or hemoptysis GI: Denies: abdominal pain, nausea, vomiting, diarrhea, constipation, hematochezia or melena : Denies: flank pain, urinary frequency or hematuria Musc: Denies: back pain, joint swelling or joint redness Skin/Breast: Denies: rash or new lesions Neuro: Reports: weakness in extremities and frequent falls; Denies: headache(s), numbness in extremities, dizziness or seizure-like activity Endo: Denies: polyuria or polydipsia Fracisco/Lymph: Denies: easy bleeding or tender lymph nodes All/Imm: Denies: urticaria or tongue swelling Medications/Allergies Home Medications Medication Instructions Recorded Confirmed Last Taken Type fluticasone 250 mcg-salmeterol 50 1 puff INHALATION BID.RESPIRATORY 08/03/20 11/26/20 Unknown Rx mcg/dose blistr powdr for #1 ea inhalation (Advair Diskus) albuterol sulfate 90 mcg/actuation 2 inh INHALATION Q6H PRN #6.7 g 09/15/20 11/26/20 Unknown Rx aerosol inhaler tiotropium bromide 18 mcg capsule 18 mcg INHALATION DAILY 09/15/20 11/26/20 Unknown History with inhalation device (Spiriva with HandiHaler) albuterol sulfate 90 mcg/actuation 2 inh INHALATION Q4H PRN #18 gm 11/26/20 Unknown Rx aerosol inhaler dexamethasone 6 mg tablet 6 mg PO DAILY #7 tab 11/26/20 Unknown Rx Allergies Allergy/AdvReac Type Severity Reaction Status Date / Time atorvastatin [From Lipitor] Allergy Unknown Unknown Verified 08/02/20 16:52 niacin Allergy Unknown Unknown Verified 08/02/20 16:52 tetracycline Allergy Unknown Unknown Verified 08/02/20 16:52 PFSH Acute PFSH: Medical History COPD (chronic obstructive pulmonary disease) History of skin cancer Hyperlipidemia Hypertension Surgical History S/P skin biopsy Family History Other CAD (coronary artery disease) Social History Smoking and tobacco status: former smoker Alcohol intake: former Household members: none Vitals/I&O/Wt Last Vital Signs Temp 98.1 F 12/25/21 21:14 Pulse 69 12/25/21 23:11 Resp 20 H 12/25/21 23:11 BP 122/70 12/25/21 23:11 Pulse Ox 98 12/25/21 23:11 Weight last 48 hrs Weight 43.998 kg Physical Exam Const: COMMON NORMALS: alert GENERAL APPEARANCE: cooperative, disheveled and frail appearing NUTRITIONAL APPEARANCE: underweight ORIENTATION/CONSCIOUSNESS: Yes awake HENMT: COMMON NORMALS: normocephalic, EAC's normal, Normal external nose present and moist oral mucous membranes HEAD & SCALP: normocephalic NOSE: Normal external nose present EXTERNAL AUDITORY CANAL: EAC's normal Neck/C-Spine: COMMON NORMALS: no meningeal signs Chest: CHEST: Yes Symmetrical chest wall rise Resp: COMMON NORMALS: clear to auscultation bilaterally AUSCULTATION: clear to auscultation bilaterally Cardio: COMMON NORMALS: regular rate, regular rhythm and No murmurs present (Cardio) RATE: regular rate RHYTHM: regular rhythm GI: COMMON NORMALS: Normal to inspection, nondistended, normoactive bowel sounds present, Soft to palpation and non-tender PALPATION: Yes Soft to palpation Extremity: COMMON NORMALS: no pedal edema OTHER: Legs are weak, difficulty lifting them off of the bed. Weak overall. Neuro: COMMON NORMALS: moves all extremities SENSORIUM/ORIENTATION: Yes alert MENINGEAL SIGNS: Yes no meningeal signs Psych: COMMON NORMALS: mental status grossly normal Skin: COMMON NORMALS: no wounds RASHES: no rashes Data : 12/25/21 20:45 12/25/21 22:50 A&P Assessment and plan (1) Recurrent falls: Reports multiple falls, today fell down on her lawn she states, and her cousin called the ambulance. She is not really concerned. She tells me that she mostly just sleeps on her socks. She denies syncope. No suggestion of acute infection currently. TSH is normal. Blood pressure is a bit soft 102/79. We will check orthostatics. She is generally weak, appears malnourished. Dehydrated, with SALVATORE, will give gentle IV hydration. Mild hyponatremia, sodium 135. Maintain regular diet. Add protein supplements. PT, OT assessment. Case management consultation. Status: Acute (2) Protein calorie malnutrition: BMI 16.1. Appears frail. Multiple falls. Week. Regular diet. Add protein shakes with meals. Health Educator consultation. Status: Acute (3) Dehydration: Gentle IV hydration. Status: Acute (4) SALVATORE (acute kidney injury): Gentle IV fluid challenge. Reassess renal function. Will check CK. Status: Acute (5) Adult failure to thrive: As above. Concern for declining ADLs and functional capacity. Status: Acute (6) Deficit in activities of daily living (ADL): Reported disheveled, covered in feces. Lives alone but says that she manages everything by herself. She is oriented x3. She cannot tell me much about her medical conditions or medications. She does say that she takes her medications. States that she pays her bills even. Tells me her brother helps her getting her groceries, sometimes another family member. Status: Acute Plan COPD not in exacerbation History of skin cancer HLD HTN Attestations Medical Necessity Statement*: Place in observation for additional assessment and management of recurrent falls, dehydration, SALVATORE, and lady of advanced age, living alone, with concern for declining ADLs, disposition planning and arrangements. Coding Level of Care Code Acute Health Plan Advisor for Lesley Acosta Diagnoses Recurrent falls R29.6 Protein calorie malnutrition E46 Dehydration E86.0 SALVATORE (acute kidney injury) N17.9 Adult failure to thrive R62.7 Deficit in activities of daily living (ADL) Z78.9
[2021-12-26] MEDS: heparin 5,000 unit/mL INJ 1 mL 5000 UNIT SUBCUT ×2 (02:53→14:43)
[2021-12-26] MEDS: lactated ringers 1,000 ML 30 ML IV (02:55)
[2021-12-26 03:15] LABS: Troponin 5 6HR 42.54 ng/L (0-10)
[2021-12-26 03:21] LABS: Troponin 5 6HR Delta -0.46 ng/L (0-12)
--- NOTE | 2021-12-26 03:27 | ECG_ITS ---
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 Measurements Intervals [place] Rate: 67 P: 93 MD: 183 QRS: -78 QRSD: 143 T: 89 QT: 448 QTc: 476 Interpretive Statements SINUS RHYTHM WITH OCCASIONAL SUPRAVENTRICULAR PREMATURE COMPLEXES LEFT AXIS DEVIATION [QRS AXIS < -30] LEFT BUNDLE BRANCH BLOCK [120+ ms QRS DURATION, 80+ ms Q/S IN V1/V2, 85+ ms R IN I/aVL/V5/V6] Compared to ECG 12/25/2021 21:33:50 No significant changes Electronically Signed On 12-27-2021 9:22:36 CDT by Keyshawn Blount M.D. [id number]
[2021-12-26 03:58] LABS: Creatine Phosphokinase 483 U/L (26-192)
[2021-12-26 08:26] LABS: Vitamin B12 487 pg/mL (232-1245)
--- NOTE | 2021-12-26 08:40 | PM.MISC ---
Miscellaneous Note Note: Patient extremely dry and weak She is worried about her animals at home She is able to tell me her name, date of , oriented, Very pleasant cooperative Clinical signs of dehydration Muscle mass loss Malnourished Cachectic Soft abdomen S1, S2 Saturating well on room air PT evaluation today Failure to thrive She would definitely benefit from short-term rehab Supplemental diet Continue IV fluids Mild hyponatremia SALVATORE related to dehydration Recurrent falls, check B12 level, TSH is normal
--- NOTE | 2021-12-26 09:16 | PC.PHAR ---
pt states she takes care of her own medications-pt states she only takes the medications entered-pts [facility] med [facility] only has the proair inhaler-pt states she doesnt use a advair or spiriva inhaler that were entered on previous entered med list
[2021-12-26] MEDS: thiamine 100 mg Tablet PO (09:34)
--- NOTE | 2021-12-26 09:50 | PC.CHAP ---
Pastoral Care Encounter/Spiritual Assessment Type of Contact [] Declined collar setter visit [] Patient/Family/Request visit [] Outpatient visit [] Follow-up visit [] Physician referral [] Code/Alert [x] Routine visit [] Staff referral [] Actively dying [] Patient sleeping [] Family support [] [] Out of room [] Palliative care [] [] Receiving care in room [] Pre-surgical visit [] Trauma [] Long length of stay [] ICU visit [] Other:precaution Relational/Emotional Strength [] Patient feels connected with others/family/visitors/staff [] Distress [] Loneliness/isolation [] Abandonment Spirituality of Patient [] Person of Alley [] Attends Mandaeism of their Alley [] Believes in Prayer [] Reads Bible or Episcopalian materials [] There are Spiritual issues to be addressed Call Centre Supervisor Interventions [x] Prayer [] Active listening [] Non-anxious presence [] Spiritual/emotional support [] Crisis/trauma care [] Spiritual counseling [] Bereavement support [] Provided bereavement packet [] Provided Bible/devotional materials [] Provided toy/stuffed animal, coloring book to patient or family member [] Provided Communion [] Anointing/[place] [] Salvation [] Completed spiritual assessment [] Other: Impact on Illness or Injury [] Angry [] Fearful [] Anxious [] Often cries [] Exhaustion [] Unable to work [] Unable to attend hoahaoism [] Unable to walk/stand [] Unable to read [] Unable to drive [] Unable to eat/drink [] Unable to sleep [] Unable to be with family [] Patient intubated [] Other: Summary Time spent with patient
[2021-12-27] VITALS (7 sets, daily range): BP systolic 101–142; BP diastolic 58–88; PULSE 67–77; RESP 17–19; TEMP 36.4–37.2; O2SAT 92–97
[2021-12-27] MEDS: heparin 5,000 unit/mL INJ 1 mL 5000 UNIT SUBCUT ×2 (03:12→13:53)
[2021-12-27 04:44] LABS: Basophils % 0.8 %; Eosinophils # 0.1 10^3/uL (0.0-0.8); Eosinophils % 1.7 %; Hematocrit 39.5 % (37.0-47.0); Hemoglobin 12.3 g/dL (11.5-15.3); Lymphocytes # 1.2 10^3/uL (0.8-4.8); Lymphocytes % 23.2 %; Mean Corpuscular HGB Conc 31.1 g/dL (30.0-36.0); Mean Corpuscular Hemoglobin 28.5 pg (28.0-34.0); Mean Corpuscular Volume 91.6 fl (81-99); Mean Platelet Volume 12.4 fL (7.4-10.4); Monocytes # 0.3 10^3/uL (0.2-0.9); Monocytes % 4.8 %; Neutrophils # 3.62 10^3/uL (1.8-7.7); Neutrophils % 69.3 %; Nucleated Red Blood Cells % 0 %; Platelet Count 103 10^3/cmm (130-400); Red Blood Count 4.31 10^6/uL (4.1-5.3); Red Cell Distribution Width 14.3 % (12.1-15.1); White Blood Count 5.2 10^3/uL (4.0-10.0)
[2021-12-27 05:07] LABS: Alanine Aminotransferase 12 U/L (0-33); Albumin Level 2.8 g/dL (3.5-5.2); Alkaline Phosphatase 103 IU/L (35-105); Anion Gap 14.8 (5-19); Aspartate Amino Transferase 31 U/L (0-32); Blood Urea Nitrogen 34 mg/dL (8-23); Carbon Dioxide 28 mmol/L (22-29); Chloride 100 mmol/L (98-107); Globulin 2.3 g/dL (1.3-4.6); Glucose 97 mg/dL (65-115); Osmolality Calculated 296 mOsm/kg (285-295); Potassium 3.8 mmol/L (3.5-5.1); Sodium 139 mmol/L (136-145); Total Bilirubin 0.3 mg/dL (0.15-1.2); Total Protein 5.1 g/dL (6.6-8.7)
[2021-12-27] MEDS: thiamine 100 mg Tablet PO (08:34)
--- NOTE | 2021-12-27 11:25 | PM.PN ---
Subjective Subjective: Patient was examined today, she was able to tell me her name, however she kept stating that she wants to go to new hospital building She was able to tell me her date of as well She is agreeable to go to prison clinical research manager updated, we are waiting on hearing back from prison and then Umberto Young Tried to call her family multiple times, the first number of Frances [phone] is a wrong number Border's number is going to voicemail, I have left a message Vitals/I&O/Wt Last Vital Signs Temp 98.0 F 12/27/21 07:19 Pulse 72 12/27/21 07:36 Resp 17 12/27/21 07:36 BP 142/88 12/27/21 07:19 Pulse Ox 94 12/27/21 07:36 12/26/21 12/27/21 12/27/21 22:59 06:59 14:59 Intake Total 240 / 480 240 / 240 Balance 240 / 480 240 / 240 Weight last 48 hrs Weight 43.998 kg Weight 43.998 kg Physical Exam Narrative: Patient is sitting in chair eating breakfast Oriented to herself Pleasant Nonfocal neuro exam I do not see any skin rash, back was examined in presence of nurse She looks dehydrated Malnourished Muscle mass loss Pleasant during my communication No audible stridor or wheezing Surgeon well on room air Abdomen soft Data : 12/27/21 04:26 12/27/21 04:26 A&P Assessment and plan (1) Protein calorie malnutrition: Status: Acute (2) Recurrent falls: Status: Acute (3) Syncope: Status: Acute (4) Dehydration: Status: Acute (5) SALVATORE (acute kidney injury): Status: Acute (6) COPD (chronic obstructive pulmonary disease): Status: Acute Plan Patient has been suffering from recurrent falls She has muscle mass loss Deconditioned We are looking for prison placement for now Positive orthostatics Continue IV fluids Protein calorie malnourished Supplemental diet SALVATORE related to dehydration improved Try to get in touch with family today, no one picked up my call Patient is DNR/DNI Attestations Medical Necessity Statement*: Awaiting placement Time Spent in Patient Care: 20mins Coding Level of Care Code Acute [place] Lineman for Chg Fwd Diagnoses Protein calorie malnutrition E46 Recurrent falls R29.6 Syncope R55 Dehydration E86.0 SALVATORE (acute kidney injury) N17.9 COPD (chronic obstructive pulmonary disease) J44.9
[2021-12-27 13:24] LABS: Creatine Phosphokinase 239 U/L (26-192)
[2021-12-27] MEDS: sodium chloride 0.9% 1,000 ML 75 ML IV (13:54)
--- NOTE | 2021-12-27 14:11 | XR_ITS ---
WS: [id number] CHEST XRAY TECHNIQUE: Portable chest. CLINICAL INFORMATION: confusion COMPARISON: December 25, 2021 FINDINGS: Heart: Normal cardiac silhouette. Lungs: Hyperinflation. Chronic emphysematous change appears stable. No acute pulmonary infiltrates. Bones: Normal visualized bony structures. XR/XR chest 1V portable [id number] IMPRESSION: No acute chest findings.
[2021-12-28] VITALS: BP 149/78; PULSE 73; RESP 18; TEMP 36.7; O2SAT 93
[2021-12-28] MEDS: heparin 5,000 unit/mL INJ 1 mL 5000 UNIT SUBCUT (02:13)
[2021-12-28] MEDS: sodium chloride 0.9% 1,000 ML 75 ML IV (03:27)
[2021-12-28 04:00] VITALS: BP 130/77; PULSE 66; RESP 17; TEMP 36.5; O2SAT 95
[2021-12-28 04:58] LABS: Basophils % 0.5 %; Eosinophils # 0.1 10^3/uL (0.0-0.8); Eosinophils % 2.7 %; Hemoglobin 11.4 g/dL (11.5-15.3); Lymphocytes # 1.1 10^3/uL (0.8-4.8); Lymphocytes % 27.2 %; Mean Corpuscular HGB Conc 31.7 g/dL (30.0-36.0); Mean Corpuscular Hemoglobin 29.3 pg (28.0-34.0); Mean Corpuscular Volume 92.5 fl (81-99); Mean Platelet Volume 11.7 fL (7.4-10.4); Monocytes # 0.3 10^3/uL (0.2-0.9); Monocytes % 7.5 %; Neutrophils # 2.57 10^3/uL (1.8-7.7); Neutrophils % 61.9 %; Nucleated Red Blood Cells % 0 %; Platelet Count 119 10^3/cmm (130-400); Red Blood Count 3.89 10^6/uL (4.1-5.3); Red Cell Distribution Width 14.5 % (12.1-15.1); White Blood Count 4.2 10^3/uL (4.0-10.0)
[2021-12-28 05:28] LABS: Alanine Aminotransferase 11 U/L (0-33); Albumin Level 2.6 g/dL (3.5-5.2); Alkaline Phosphatase 89 IU/L (35-105); Anion Gap 9.7 (5-19); Aspartate Amino Transferase 22 U/L (0-32); Blood Urea Nitrogen 34 mg/dL (8-23); Calcium 8.4 mg/dL (8.5-10.5); Carbon Dioxide 28 mmol/L (22-29); Chloride 105 mmol/L (98-107); Globulin 2.1 g/dL (1.3-4.6); Glucose 74 mg/dL (65-115); Osmolality Calculated 294 mOsm/kg (285-295); Potassium 3.7 mmol/L (3.5-5.1); Sodium 139 mmol/L (136-145); Total Bilirubin 0.4 mg/dL (0.15-1.2); Total Protein 4.7 g/dL (6.6-8.7)
[2021-12-28 07:34] VITALS: BP 118/75; PULSE 68; RESP 13; TEMP 37.1; O2SAT 98
[2021-12-28 08:27] VITALS: PULSE 74; RESP 16; O2SAT 95
[2021-12-28] MEDS: thiamine 100 mg Tablet PO (08:29)
--- NOTE | 2021-12-28 10:30 | PC.SOCIAL ---
IMM Update Pg. 2 of IMM updated and reviewed with patient. Signed, dated, and timed, and placed in chart. Copy provided to patient.
--- NOTE | 2021-12-28 11:29 | P.DS_ITS ---
Discharge Providers Date of Admission: 12/25/21 23:55 Date of Discharge: December 28, 2021 Attending Provider at Admission: Hossein Quick Attending Provider at Discharge: Krish Fontaine MD Primary Care Provider: ARNALDO Coley Diagnoses at Discharge Discharge Diagnosis (1) Protein calorie malnutrition: Status: Acute (2) Recurrent falls: Status: Acute (3) Syncope: Status: Acute (4) Dehydration: Status: Acute (5) SALVATORE (acute kidney injury): Status: Acute (6) COPD (chronic obstructive pulmonary disease): Status: Acute Reason for Visit Reason for Visit: weakness Hospital Course Hospital Course Admitting note of Dr. Quick 81-year-old lady was brought in by EMS after she states she had fallen down on her lawn, with her cousin calling EMS, she states that she has been having a number of falls recently.? While laying in bed during examination notes that that her legs are feeling heavy .? There are reports of lightheadedness as well, although this may be coming from the family as she denies it.? She seems to be unconcerned about her falls.? Feels that some of them are due to her slipping on her socks.? She lives alone.? She states that her brother helps her with her groceries.? She knows she is in the hospital, and can tell me the year.? She cannot tell me about any of her medical conditions, tells me that she is generally fairly healthy apart from having a cold once in a while.? She does not remember having any medication changes recently, but she cannot tell me what her medications are, although tells that she takes them, and that she manages them herself.? She tells me that she pays bills herself from her check, and says that she does so by mail. In ER she was reported disheveled, covered in feces. Head CT without acute abnormality, with involutional changes of the brain keeping patient's age with findings of chronic microvascular ischemic disease.? Small old lacunar infarcts bilaterally.? CT cervical spine without acute cervical spinal injury, with degenerative changes.? Chest x-ray with emphysema, no infiltrate.? UA unremarkable.? Noted mild hyponatremia, sodium 135.? Noted acute kidney injury, creatinine 1.2.? Mild abnormality AST 44, mild elevation of alk phos 116 compared to normal previously. Baseline troponin 43, 2-hour troponin 46.3 7.? NT proBNP 1098 similar to prior.? TSH is normal. With regards to CODE STATUS she states she would not want cardiopulmonary resuscitation in case of arrest.? She states I am 81 years old, I do not necessarily want to see 90, if I do that is good if not that is okay too . Hospital course Patient was admitted for management and evaluation of dehydration related SALVATORE which improved with IV fluid hydration. She was extremely fatigued and lethargic, muscle mass loss. Recurrent falls. Secondary to dehydration she was orthostatic positive. TSH normal. Blood pressure improved. Her mentation was waxing and waning however it improved on 12/28. She is agreeable to go to short- term SNF for now. No signs of stroke, meningitis, pneumonia or UTI. CPK improved with IV fluid hydration. Vitamin B12 187. Covid antigen negative. DNR/DNI Her daughter is in a rehab, I have updated her brother, left a voicemail at the time of discharge as well, I would only add multivitamins at this time & Seroquel for as needed usage. Physical Exam Narrative: Patient is sitting in chair eating breakfast She is awake and alert, oriented to time place and person Pleasant Nonfocal neuro exam I do not see any skin rash, back was examined in presence of nurse She looks dehydrated Malnourished Muscle mass loss Pleasant during my communication No audible stridor or wheezing Saturating well on room air Abdomen soft Discharge Data Studies Completed and Pending Completed Studies During Hospitalization Category Date Time Status CT cervical spin wo con* [id number] Urgent Cat Scan 12/25/21 21:[address] head wo con* [id number] Urgent Cat Scan 12/25/21 21:26 Completed XR chest 1V portable [id number] Routine Exams 12/27/21 14:11 Completed XR chest 1V portable [id number] Urgent Exams 12/25/21 21:26 Completed Pending at discharge Category Date Time Status COVID [SARS Covid-2 Antigen] Routine Lab 12/28/21 10:30 Received Complete Blood Count w/Auto AM LABS Lab 12/29/21 04:00 Ordered Comprehensive Metabolic Panel AM LABS Lab 12/29/21 04:00 Ordered Urinalysis Routine Lab 12/27/21 14:11 Uncollected Radiology Impressions Cervical Spine CT 12/25/21 21:26 IMPRESSION: 1. No acute cervical spinal injury demonstrated by CT. 2. Degenerative changes of the cervical spine. Head CT 12/25/21 21:26 IMPRESSION: 1. No acute intracranial hemorrhage, mass effect or midline shift. 2. Involutional changes of the brain in keeping with the patient's age, with findings of chronic microvascular ischemic disease. 3. 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 Chest X-Ray 12/27/21 14:11 IMPRESSION: No acute chest findings. Laboratory Results WBC 4.2 10^3/uL (4.0-10.0) 12/28/21 04:44 RBC 3.89 10^6/uL (4.1-5.3) L 12/28/21 04:44 Hgb 11.4 g/dL (11.5-15.3) L 12/28/21 04:44 Hct 36.0 % (37.0-47.0) L 12/28/21 04:44 MCV 92.5 fl (81-99) 12/28/21 04:44 MCH 29.3 pg (28.0-34.0) 12/28/21 04:44 MCHC 31.7 g/dL (30.0-36.0) 12/28/21 04:44 RDW 14.5 % (12.1-15.1) 12/28/21 04:44 Plt Count 119 10^3/cmm (130-400) L 12/28/21 04:44 MPV 11.7 fL (7.4-10.4) H 12/28/21 04:44 Neut % (Auto) 61.9 % 12/28/21 04:44 Lymph % (Auto) 27.2 % 12/28/21 04:44 [place] % (Auto) 7.5 % 12/28/21 04:44 Eos % (Auto) 2.7 % 12/28/21 04:44 Baso % (Auto) 0.5 % 12/28/21 04:44 Neut # (Auto) 2.57 10^3/uL (1.8-7.7) 12/28/21 04:44 Lymph # (Auto) 1.1 10^3/uL (0.8-4.8) 12/28/21 04:44 [place] # (Auto) 0.3 10^3/uL (0.2-0.9) 12/28/21 04:44 Eos # (Auto) 0.1 10^3/uL (0.0-0.8) 12/28/21 04:44 Baso # (Auto) 0.0 10^3/uL (0.0-0.1) 12/28/21 04:44 Nucleated RBC % (auto) 0 % 12/28/21 04:44 Nucleated RBCs # 0.0 /100WBC 12/28/21 04:44 Sodium 139 mmol/L (136-145) 12/28/21 04:44 Potassium 3.7 mmol/L (3.5-5.1) 12/28/21 04:44 Chloride 105 mmol/L (98-107) 12/28/21 04:44 Carbon Dioxide 28 mmol/L (22-29) 12/28/21 04:44 Anion Gap 9.7 (5-19) 12/28/21 04:44 BUN 34 mg/dL (8-23) H 12/28/21 04:44 Creatinine 0.9 mg/dL (0.5-0.9) 12/28/21 04:44 GFR Calculation Not Reportable 12/28/21 04:44 Glucose 74 mg/dL (65-115) 12/28/21 04:44 Calculated Osmolality 294 mOsm/kg (285-295) 12/28/21 04:44 Calcium 8.4 mg/dL (8.5-10.5) L 12/28/21 04:44 Total Bilirubin 0.4 mg/dL (0.15-1.2) 12/28/21 04:44 AST 22 U/L (0-32) 12/28/21 04:44 ALT 11 U/L (0-33) 12/28/21 04:44 Alkaline Phosphatase 89 IU/L (35-105) 12/28/21 04:44 Creatine Kinase 239 U/L (26-192) H 12/27/21 04:26 Troponin T Baseline 43 ng/L (0-10) H 12/25/21 20:45 Troponin T 120 Minute 46.37 ng/L (0-10) H 12/25/21 22:50 Delta Troponin T 3.37 ABS# (0-10) 12/25/21 22:50 Troponin T Hi Sens 6Hr 42.54 ng/L (0-10) H 12/26/21 02:36 Troponin T Hi Sens 6Hr Delta -0.46 ng/L (0-12) L 12/26/21 02:36 NT-Pro-B Natriuret Pep 1098 pg/mL (0-450) H 12/25/21 22:50 Total Protein 4.7 g/dL (6.6-8.7) L 12/28/21 04:44 Albumin 2.6 g/dL (3.5-5.2) L 12/28/21 04:44 Globulin 2.1 g/dL (1.3-4.6) 12/28/21 04:44 Vitamin B12 487 pg/mL (232-1245) 12/26/21 02:36 TSH 1.43 uIU/mL (0.27-4.20) 12/25/21 22:50 Urine Color Yellow (Yellow) 12/25/21 22:50 Urine Appearance Clear (CLEAR) 12/25/21 22:50 Urine pH 5 (5-7) 12/25/21 22:50 Ur Specific Golden 1.020 (1.005-1.030) 12/25/21 22:50 Urine Protein Neg (Negative) 12/25/21 22:50 Urine Glucose (UA) Norm (Normal) 12/25/21 22:50 Urine Ketones Negative (Negative) 12/25/21 22:50 Urine Blood Neg (Negative) 12/25/21 22:50 Urine Nitrate Negative (Negative) 12/25/21 22:50 Urine Bilirubin Neg (Negative) 12/25/21 22:50 Urine Urobilinogen Norm mg/dL (Negative) 12/25/21 22:50 Ur Leukocyte Esterase Negative (Negative) 12/25/21 22:50 Ethyl Alcohol < 10 mg/dL (0-10) 12/25/21 22:50 Vitals Last Vital Signs Temp 98.8 F 12/28/21 07:34 Pulse 74 12/28/21 08:27 Resp 16 12/28/21 08:27 BP 118/75 12/28/21 07:34 Pulse Ox 95 12/28/21 08:27 Discharge Plan Discharge Patient Disposition: Xfer SNF Condition: Stable Prescriptions: New quetiapine 25 mg Tablet 25 mg PO BEDTIME PRN (Reason: Agitation) Qty: 20 0RF Vitamin B-1 (mononitrate) 100 mg Tablet 100 mg PO DAILY Qty: 30 0RF Continued albuterol sulfate 90 mcg/actuation HFA aerosol inhaler 2 inh INHALATION Q4H PRN (Reason: shortness of breath or wheezing) Qty: 18 0RF Changed aspirin 325 mg Tablet 81 mg PO Q6H PRN (Reason: Headache) Qty: 0 0RF Discharge Orders: Discharge Order (Routine); Ordered 12/28/21 Ordered By: Krish Fontaine Referrals: [facility] [place] [facility] [place]] Bibiana Hatfield, AQUATICS SPECIALIST [Primary Care Provider] - Discharge Diet: Regular Discharge Activity: As per PT/OT instructions Patient Instructions: Thiamine (By mouth), Quetiapine (By mouth), Opioid Safety Discharge Attestations Time Spent in Discharge Care*: less than 30 min Quality Metrics Clinical Quality Measures [ No reported AMI, CVA or VTE this stay] Coding Level of Care Code Acute Chg [facility] note Diagnoses Protein calorie malnutrition E46 Recurrent falls R29.6 Syncope R55 Dehydration E86.0 SALVATORE (acute kidney injury) N17.9 COPD (chronic obstructive pulmonary disease) J44.9
[2021-12-28 11:53] LABS: SARS Covid-2 Antigen Negative (Negative)
[2021-12-28 12:00] VITALS: BP 104/68; PULSE 71; RESP 13; TEMP 36.9; O2SAT 96
--- NOTE | 2021-12-28 14:00 | PC.NURSE ---
REPORT CALLED TO RAZA JOHNSON AT [facility].
[2021-12-28 14:53] VITALS: BP 104/68; PULSE 71; RESP 13; TEMP 36.9; O2SAT 96
== END 2021-12-28 15:08 | disposition skilled nursing facility (03) ==
LOC: ER 23:55 → MEDSURG 12-26 00:28
PROVIDERS: Admitting Provider Internal Medicine; Emergency Provider Emergency Medicine; PCP Nurse Practitioner; Visit Provider Internal Medicine
DX: E86.0 Dehydration (principal); N17.9 Acute kidney failure, unspecified; E46 Unspecified protein-calorie malnutrition; Z68.1 Body mass index [BMI] 19.9 or less, adult; R29.6 Repeated falls; R55 Syncope and collapse; J44.9 Chronic obstructive pulmonary disease, unspecified; Z91.81 History of falling; Z66 Do not resuscitate; E78.5 Hyperlipidemia, unspecified; I10 Essential (primary) hypertension; Z85.828 Personal history of other malignant neoplasm of skin; Z87.891 Personal history of nicotine dependence
CPT/HCPCS: 36415; 70450; 71045; 72125; 80053; 80307; 81003; 82550; 82607; 83880; 84443; 84484; 85025; 87426; 93005; 96360; 96361; 96372; 97116; 97161; 97166; 97530; 97535; 99285; G0378; J1644; J7030

== ENCOUNTER 2022-03-29 08:02 | Emergency (ER) | payer OTHER, MEDICARE, SELFPAY ==
[2022-03-29] VITALS (17 sets, daily range): BP systolic 150–176; BP diastolic 56–93; PULSE 67–82; RESP 20–24; TEMP 36.9; O2SAT 90–100; BMI 16.9
--- NOTE | 2022-03-29 08:27 | PC.PHAR ---
Nurse from [place] for this patient stated patient currently only takes PRN OTC MEDICATIONS WHEN I ASKED FOR A MAR TO BE FAXED. NURSE STATED THAT IS WHY SHE DID NOT SEND A MAR TO THE ER WITH PATIENT. MEDICATION LIST GIVEN OVER THE PHONE.
--- NOTE | 2022-03-29 08:28 | W.ED.SOB ---
Documented by User: ANNA MARIE Lara 03/29/22 14:19 HPI - SOB/Dyspnea General: Chief Complaint: Shortness of Breath/Dyspnea Stated Complaint: SOB X 2 WEEKS, INCREASED BP Time Seen by Provider: 03/29/22 08:04 Source: patient and EMS Mode of arrival: EMS Limitations: no limitations History of Present Illness: HPI Narrative: Patient is an 81-year-old female with a history of COPD, hyperlipidemia, HTN, failure to thrive who presents to the ED today from [facility] for complaints of elevated blood pressure reading and shortness of breath. Patient overall is a fairly poor historian. She states she has had some shortness of breath for several weeks now. According to the long-term patient does have as needed oxygen that she uses for her COPD. They state over the past 2 weeks she has been having to use it more frequently. He stated blood pressure was elevated at their facilities at roughly 170s/100s. At the time of my initial examination blood pressure is 150/50s. Patient is not having any chest pain. She states she is not having pain anywhere. She has no complaints other than feeling slightly short of breath. MD elicited complaint: shortness of breath Pertinent past history: COPD Onset (ago): week(s) Timing: constant Relieving factors: oxygen Known history of: COPD Associated symptoms: Deny abdominal pain, chest congestion, chest pain, extremity pain, fever(s), hemoptysis, nausea or vomiting Treatment prior to arrival: oxygen Related Data: Home oxygen amount: 2 liters (PRN) Review of Systems Const: Denies: fever(s), chills, body aches, fatigue or malaise Card: Denies: chest pain Resp: Reports: dyspnea; Denies: productive cough, non-productive cough, wheezing, pain on inspiration, hemoptysis or chest congestion GI: Denies: abdominal pain, nausea, vomiting or diarrhea : Denies: flank pain or dysuria Musc: Denies: neck pain, back pain, extremity pain or joint pain Skin/Breast: Denies: rash Neuro: Denies: headache(s), numbness in extremities, weakness in extremities or sensory changes PFS ED PFSH: Medical History COPD (chronic obstructive pulmonary disease) History of skin cancer Hyperlipidemia Hypertension Surgical History S/P skin biopsy Family History Other CAD (coronary artery disease) Social History Smoking and tobacco status: former smoker Alcohol intake: former Household members: none Physical Exam Const: COMMON NORMALS: no acute distress and alert GENERAL APPEARANCE: cooperative NUTRITIONAL APPEARANCE: cachectic ORIENTATION/CONSCIOUSNESS: Yes awake, Yes oriented to person and Yes oriented to place HENMT: COMMON NORMALS: normocephalic and atraumatic HEAD & SCALP: normal to inspection, normocephalic and atraumatic Resp: COMMON NORMALS: normal respiratory effort EFFORT & INSPECTION: No labored, No grunting, No stridor, No Actively coughing, No retractions and No uses accessory muscles AUSCULTATION: rales Cardio: COMMON NORMALS: regular rate and regular rhythm RATE: regular rate RHYTHM: regular rhythm GI: COMMON NORMALS: Normal to inspection, nondistended, normoactive bowel sounds present, Soft to palpation and non-tender PALPATION: Yes Soft to palpation : COMMON NORMALS: Yes no CVA tenderness BLADDER/KIDNEY EXAM: Yes no CVA tenderness Back/Pelvis: COMMON NORMALS: no CVA tenderness Extremity: COMMON NORMALS: normal to inspection, no clubbing, cyanosis or edema, no calf tenderness and no pedal edema GENERAL: Yes normal exam except as noted Neuro: MITCHEL COMA SCALE: document GCS findings Mitchel coma scale eye opening: Spontaneous Bryant coma scale verbal response: Orientated Bryant coma scale motor response: Obey commands Mitchel coma scale total score: 15 COMMON NORMALS: CN's II-XII intact bilaterally, moves all extremities, no focal motor deficits and no sensory deficits noted SENSORIUM/ORIENTATION: Yes alert, Yes oriented to person and Yes oriented to place Skin: COMMON NORMALS: no rashes or lesions noted GENERAL SKIN EXAM: no rashes or lesions noted Course Vital Signs: Vital signs: Vital Signs Temperature 98.4 F 03/29/22 08:10 Pulse Rate 74 03/29/22 13:34 Respiratory Rate 22 H 03/29/22 13:30 Blood Pressure 157/93 03/29/22 11:30 Pulse Oximetry 91 03/29/22 13:30 MDM - SOB/Dyspnea Medical Decision Making Patient clinically appears in no respiratory distress. She does have a history of COPD. After reviewing previous documentation it looks like at some point she was on inhalers for this however long-term states she does not take any prescription medications at this time. He does have an order for as needed oxygen that she uses at the long-term. Patient was treated with serial DuoNeb treatments and Solu-Medrol. She does report feeling better. Oxygen is remaining anywhere from 91 to 94% on room air which is thought to be close to her baseline. Pressure has been stable throughout her stay in the 150s/80s. She is not on any medications for hypertension. This can be something that gets addressed with her PCP or the provider through the long-term see if they want to start her on hypertensive medications. I do not think patient needs to be an admit at this time for her COPD. We will discharge her back to the long-term on steroids, inhalers, and Levaquin. She can use her oxygen as needed. Return to ED precautions given if symptoms worsen or if she is requiring more oxygen. Of note her COVID was negative. Her lab work today overall is fairly unremarkable. Dr. Alvarez also saw/evaluated patient and agrees with assessment, work up here, and plan for DC to long-term. Lab Data : 03/29/22 09:30 03/29/22 09:30 Labs/Radiology: Radiology Impressions Chest X-Ray 03/29/22 08:33 Impression: Atherosclerosis and hyperinflation. Laboratory Results WBC 5.2 10^3/uL (4.0-10.0) 03/29/22 09:30 RBC 4.55 10^6/uL (4.1-5.3) 03/29/22 09:30 Hgb 13.2 g/dL (11.5-15.3) 03/29/22 09:30 Hct 41.8 % (37.0-47.0) 03/29/22 09:30 MCV 91.9 fl (81-99) 03/29/22 09:30 MCH 29.0 pg (28.0-34.0) 03/29/22 09:30 MCHC 31.6 g/dL (30.0-36.0) 03/29/22 09:30 RDW 13.1 % (12.1-15.1) 03/29/22 09:30 Plt Count 247 10^3/cmm (130-400) 03/29/22 09:30 MPV 10.5 fL (7.4-10.4) H 03/29/22 09:30 Neut % (Auto) 64.8 % 03/29/22 09:30 Lymph % (Auto) 17.1 % 03/29/22 09:30 [place] % (Auto) 9.9 % 03/29/22 09:30 Eos % (Auto) 6.8 % 03/29/22 09:30 Baso % (Auto) 1.2 % 03/29/22 09:30 Neut # (Auto) 3.34 10^3/uL (1.8-7.7) 03/29/22 09:30 Lymph # (Auto) 0.9 10^3/uL (0.8-4.8) 03/29/22 09:30 [place] # (Auto) 0.5 10^3/uL (0.2-0.9) 03/29/22 09:30 Eos # (Auto) 0.4 10^3/uL (0.0-0.8) 03/29/22 09:30 Baso # (Auto) 0.1 10^3/uL (0.0-0.1) 03/29/22 09:30 Nucleated RBC % (auto) 0 % 03/29/22 09:30 Nucleated RBCs # 0.0 /100WBC 03/29/22 09:30 Sodium 140 mmol/L (136-145) 03/29/22 09:30 Potassium 4.1 mmol/L (3.5-5.1) 03/29/22 09:30 Chloride 100 mmol/L (98-107) 03/29/22 09:30 Carbon Dioxide 31 mmol/L (22-29) H 03/29/22 09:30 Anion Gap 13.1 (5-19) 03/29/22 09:30 BUN 16 mg/dL (8-23) 03/29/22 09:30 Creatinine 0.6 mg/dL (0.5-0.9) 03/29/22 09:30 GFR Calculation Not Reportable 03/29/22 09:30 Glucose 87 mg/dL (65-115) 03/29/22 09:30 Calculated Osmolality 291 mOsm/kg (285-295) 03/29/22 09:30 Calcium 9.0 mg/dL (8.5-10.5) 03/29/22 09:30 Total Bilirubin 0.3 mg/dL (0.15-1.2) 03/29/22 09:30 AST 15 U/L (0-32) 03/29/22 09:30 ALT 7 U/L (0-33) 03/29/22 09:30 Alkaline Phosphatase 89 IU/L (35-105) 03/29/22 09:30 Troponin T Baseline 15 ng/L (0-10) H 03/29/22 09:30 Troponin T 120 Minute 13.97 ng/L (0-10) H 03/29/22 11:32 Delta Troponin T -1.03 ABS# (0-10) L 03/29/22 11:32 Total Protein 6.8 g/dL (6.6-8.7) 03/29/22 09:30 Albumin 3.2 g/dL (3.5-5.2) L 03/29/22 09:30 Globulin 3.6 g/dL (1.3-4.6) 03/29/22 09:30 Urine Color Yellow (Yellow) 03/29/22 10:06 Urine Appearance Clear (CLEAR) 03/29/22 10:06 Urine pH 5 (5-7) 03/29/22 10:06 Ur Specific [place] 1.025 (1.005-1.030) 03/29/22 10:06 Urine Protein Neg (Negative) 03/29/22 10:06 Urine Glucose (UA) Norm (Normal) 03/29/22 10:06 Urine Ketones Negative (Negative) 03/29/22 10:06 Urine Blood 3+ (Negative) H 03/29/22 10:06 Urine Nitrate Negative (Negative) 03/29/22 10:06 Urine Bilirubin Neg (Negative) 03/29/22 10:06 Urine Urobilinogen Norm mg/dL (Negative) 03/29/22 10:06 Ur Leukocyte Esterase Negative (Negative) 03/29/22 10:06 Urine RBC 10-15 /hpf (0-2) H 03/29/22 10:06 Urine WBC 0-4 /hpf (0-5) H 03/29/22 10:06 Ur Squamous Epith Cells 0-4 /hpf (0-5) H 03/29/22 10:06 Amorphous Sediment Not Reportable 03/29/22 10:06 Urine Bacteria 1+ /hpf (NONE) H 03/29/22 10:06 Urine Mucus 1+ /hpf 03/29/22 10:06 Coronavirus 229E (PCR) Not detected (NOT DETECT) 03/29/22 10:20 SARS-CoV-2 (PCR) Not detected (NOT DETECT) 03/29/22 10:20 Discharge Plan Discharge Patient Disposition: Home Clinical Impression: Acute exacerbation of chronic obstructive pulmonary disease Condition: Stable Prescriptions: New dexamethasone 6 mg tablet 6 mg PO DAILY Qty: 6 0RF levofloxacin 500 mg tablet 500 mg PO DAILY 7 Days Qty: 7 0RF albuterol sulfate 90 mcg/actuation HFA aerosol inhaler 2 inh INHALATION Q4H PRN (Reason: shortness of breath or wheezing) Qty: 6.7 0RF Spiriva Respimat 1.25 mcg/actuation mist 2 inh inhalation QAM Qty: 4 0RF No Action Tylenol 325 mg Tablet 325 mg PO QID PRN (Reason: Pain) 0RF Milk of Magnesia 400 mg/5 mL Suspension 15 ml PO DAILY PRN (Reason: Constipation) 0RF Dulcolax (bisacodyl) 10 mg Suppository 10 mg KS DAILY PRN (Reason: Constipation) 0RF Fleet Enema 19-7 gram/118 mL Enema 118 ml KS DAILY PRN (Reason: Constipation) 0RF Discharge Orders: Discharge ED (Routine); Ordered 03/29/22 Ordered By: Enedina Sim Referrals: Bibiana Hatfield FNP [Primary Care Provider] - Patient Instructions: COPD (Chronic Obstructive Pulmonary Disease) (DC) Activity Restrictions/Additional Instructions: Blood pressures have stable during her ED stay. Blood pressure journal and speak to her primary care provider or the provider over the long-term to see if they would like to start her on any antihypertensive medications. She does have a history of COPD. Oxygen has been stable had anywhere from 91 to 94% on room air here. Her chest x-ray shows no acute findings. We will place her on steroids, antibiotics, and breathing treatments/inhalers for treatment of COPD exacerbation. Follow-up with primary care in 3 to 5 days if symptoms do not seem to be improving. Per report she has as needed oxygen she can continue to use. Coding Level of Care Code ED Pattern Shop Supervisor for Chg Fwd Exam Comprehensive Documented by User: Elver Alvarez DO 03/29/22 14:42 HPI - SOB/Dyspnea General: Chief Complaint: Shortness of Breath/Dyspnea Stated Complaint: SOB X 2 WEEKS, INCREASED BP Time Seen by Provider: 03/29/22 08:04 PFSH ED PFSH: Medical History COPD (chronic obstructive pulmonary disease) History of skin cancer Hyperlipidemia Hypertension Surgical History S/P skin biopsy Family History Other CAD (coronary artery disease) Social History Smoking and tobacco status: former smoker Alcohol intake: former Household members: none Physical Exam Neuro: MITCHEL COMA SCALE: document GCS findings Mitchel coma scale total score: 15 Course Consultations: Additional Consultation(s): I was one of the attending physicians on duty when this patient was seen, evaluated, treated by the advanced nurse practitioner. I discussed this case with her in real-time and examined the patient at 1236. At that time the patient was alert her noted that she had a pulse oximetry of 94% on room air with good waveform. She was alert responsive and interactive. Her focused examination reveals some faint expiratory wheezes on auscultation of the chest but no other clinical findings not noted in the previous documented examination. At that time I made treatment recommendations to the advanced nurse practitioner. I reexamined the patient at 1405 after subsequent treatment and she remained alert with pulse oximetry in the 94% range on room air. She had a reassuring clinical examination at that time and I agree with the plan of care as outlined in this documentation. Patient was stable to be transferred back to long-term care facility with continued treatment and return as symptoms dictate. Vital Signs: Vital signs: Vital Signs Temperature 98.4 F 03/29/22 08:10 Pulse Rate 74 03/29/22 13:34 Respiratory Rate 22 H 03/29/22 13:30 Blood Pressure 157/93 03/29/22 11:30 Pulse Oximetry 91 03/29/22 13:30 MDM - SOB/Dyspnea Lab Data : 03/29/22 09:30 03/29/22 09:30 Labs/Radiology: Radiology Impressions Chest X-Ray 03/29/22 08:33 Impression: Atherosclerosis and hyperinflation. Laboratory Results WBC 5.2 10^3/uL (4.0-10.0) 03/29/22 09:30 RBC 4.55 10^6/uL (4.1-5.3) 03/29/22 09:30 Hgb 13.2 g/dL (11.5-15.3) 03/29/22 09:30 Hct 41.8 % (37.0-47.0) 03/29/22 09:30 MCV 91.9 fl (81-99) 03/29/22 09:30 MCH 29.0 pg (28.0-34.0) 03/29/22 09:30 MCHC 31.6 g/dL (30.0-36.0) 03/29/22 09:30 RDW 13.1 % (12.1-15.1) 03/29/22 09:30 Plt Count 247 10^3/cmm (130-400) 03/29/22 09:30 MPV 10.5 fL (7.4-10.4) H 03/29/22 09:30 Neut % (Auto) 64.8 % 03/29/22 09:30 Lymph % (Auto) 17.1 % 03/29/22 09:30 [place] % (Auto) 9.9 % 03/29/22 09:30 Eos % (Auto) 6.8 % 03/29/22 09:30 Baso % (Auto) 1.2 % 03/29/22 09:30 Neut # (Auto) 3.34 10^3/uL (1.8-7.7) 03/29/22 09:30 Lymph # (Auto) 0.9 10^3/uL (0.8-4.8) 03/29/22 09:30 [place] # (Auto) 0.5 10^3/uL (0.2-0.9) 03/29/22 09:30 Eos # (Auto) 0.4 10^3/uL (0.0-0.8) 03/29/22 09:30 Baso # (Auto) 0.1 10^3/uL (0.0-0.1) 03/29/22 09:30 Nucleated RBC % (auto) 0 % 03/29/22 09:30 Nucleated RBCs # 0.0 /100WBC 03/29/22 09:30 Sodium 140 mmol/L (136-145) 03/29/22 09:30 Potassium 4.1 mmol/L (3.5-5.1) 03/29/22 09:30 Chloride 100 mmol/L (98-107) 03/29/22 09:30 Carbon Dioxide 31 mmol/L (22-29) H 03/29/22 09:30 Anion Gap 13.1 (5-19) 03/29/22 09:30 BUN 16 mg/dL (8-23) 03/29/22 09:30 Creatinine 0.6 mg/dL (0.5-0.9) 03/29/22 09:30 GFR Calculation Not Reportable 03/29/22 09:30 Glucose 87 mg/dL (65-115) 03/29/22 09:30 Calculated Osmolality 291 mOsm/kg (285-295) 03/29/22 09:30 Calcium 9.0 mg/dL (8.5-10.5) 03/29/22 09:30 Total Bilirubin 0.3 mg/dL (0.15-1.2) 03/29/22 09:30 AST 15 U/L (0-32) 03/29/22 09:30 ALT 7 U/L (0-33) 03/29/22 09:30 Alkaline Phosphatase 89 IU/L (35-105) 03/29/22 09:30 Troponin T Baseline 15 ng/L (0-10) H 03/29/22 09:30 Troponin T 120 Minute 13.97 ng/L (0-10) H 03/29/22 11:32 Delta Troponin T -1.03 ABS# (0-10) L 03/29/22 11:32 Total Protein 6.8 g/dL (6.6-8.7) 03/29/22 09:30 Albumin 3.2 g/dL (3.5-5.2) L 03/29/22 09:30 Globulin 3.6 g/dL (1.3-4.6) 03/29/22 09:30 Urine Color Yellow (Yellow) 03/29/22 10:06 Urine Appearance Clear (CLEAR) 03/29/22 10:06 Urine pH 5 (5-7) 03/29/22 10:06 Ur Specific [place] 1.025 (1.005-1.030) 03/29/22 10:06 Urine Protein Neg (Negative) 03/29/22 10:06 Urine Glucose (UA) Norm (Normal) 03/29/22 10:06 Urine Ketones Negative (Negative) 03/29/22 10:06 Urine Blood 3+ (Negative) H 03/29/22 10:06 Urine Nitrate Negative (Negative) 03/29/22 10:06 Urine Bilirubin Neg (Negative) 03/29/22 10:06 Urine Urobilinogen Norm mg/dL (Negative) 03/29/22 10:06 Ur Leukocyte Esterase Negative (Negative) 03/29/22 10:06 Urine RBC 10-15 /hpf (0-2) H 03/29/22 10:06 Urine WBC 0-4 /hpf (0-5) H 03/29/22 10:06 Ur Squamous Epith Cells 0-4 /hpf (0-5) H 03/29/22 10:06 Amorphous Sediment Not Reportable 03/29/22 10:06 Urine Bacteria 1+ /hpf (NONE) H 03/29/22 10:06 Urine Mucus 1+ /hpf 03/29/22 10:06 Coronavirus 229E (PCR) Not detected (NOT DETECT) 03/29/22 10:20 SARS-CoV-2 (PCR) Not detected (NOT DETECT) 03/29/22 10:20 Discharge Plan Discharge Patient Disposition: Home Clinical Impression: Acute exacerbation of chronic obstructive pulmonary disease Condition: Stable Prescriptions: New dexamethasone 6 mg tablet 6 mg PO DAILY Qty: 6 0RF levofloxacin 500 mg tablet 500 mg PO DAILY 7 Days Qty: 7 0RF albuterol sulfate 90 mcg/actuation HFA aerosol inhaler 2 inh INHALATION Q4H PRN (Reason: shortness of breath or wheezing) Qty: 6.7 0RF Spiriva Respimat 1.25 mcg/actuation mist 2 inh inhalation QAM Qty: 4 0RF No Action Tylenol 325 mg Tablet 325 mg PO QID PRN (Reason: Pain) 0RF Milk of Magnesia 400 mg/5 mL Suspension 15 ml PO DAILY PRN (Reason: Constipation) 0RF Dulcolax (bisacodyl) 10 mg Suppository 10 mg KS DAILY PRN (Reason: Constipation) 0RF Fleet Enema 19-7 gram/118 mL Enema 118 ml KS DAILY PRN (Reason: Constipation) 0RF Discharge Orders: Discharge ED (Routine); Ordered 03/29/22 Ordered By: Enedina Sim Referrals: Bibiana Hatfield FNP [Primary Care Provider] - Patient Instructions: COPD (Chronic Obstructive Pulmonary Disease) (DC) Activity Restrictions/Additional Instructions: Blood pressures have stable during her ED stay. Blood pressure journal and speak to her primary care provider or the provider over the long-term to see if they would like to start her on any antihypertensive medications. She does have a history of COPD. Oxygen has been stable had anywhere from 91 to 94% on room air here. Her chest x-ray shows no acute findings. We will place her on steroids, antibiotics, and breathing treatments/inhalers for treatment of COPD exacerbation. Follow-up with primary care in 3 to 5 days if symptoms do not seem to be improving. Per report she has as needed oxygen she can continue to use. Coding Level of Care Code ED Pattern Shop Supervisor for Lesley Fwcasey Exam Comprehensive
--- NOTE | 2022-03-29 08:33 | XR_ITS ---
WS: [id number] Portable AP upright chest, 03/29/2022 Clinical Data: sob Comparison: Portable chest, 12/27/2021. Findings: No nodules, masses or effusions are seen. The heart is normal. The pulmonary vascularity is not increased. No pneumonia or pneumothorax is seen. The aortic arch and descending thoracic aorta s how mild tortuosity. The diaphragms are flattened. XR/XR chest 1V portable [id number] Impression: Atherosclerosis and hyperinflation.
--- NOTE | 2022-03-29 08:34 | ECG_ITS ---
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 Measurements Intervals [place] Rate: 76 P: 86 [place]: 179 QRS: -71 QRSD: 132 T: 91 QT: 444 QTc: 500 Interpretive Statements SINUS RHYTHM WITH SINUS ARRHYTHMIA LEFT AXIS DEVIATION [QRS AXIS < -30] LEFT BUNDLE BRANCH BLOCK [120+ ms QRS DURATION, 80+ ms Q/S IN V1/V2, 85+ ms R IN I/aVL/V5/V6] Compared to ECG 12/26/2021 02:39:33 No significant changes Electronically Signed On 03-29-2022 17:55:40 CDT by Kg Victor M.D. [id number]
[2022-03-29] MEDS: ipratropium-albuterol 3 mL Neb INHALATION ×2 (09:34→13:30)
[2022-03-29 09:44] LABS: Basophils # 0.1 10^3/uL (0.0-0.1); Basophils % 1.2 %; Eosinophils # 0.4 10^3/uL (0.0-0.8); Eosinophils % 6.8 %; Hematocrit 41.8 % (37.0-47.0); Hemoglobin 13.2 g/dL (11.5-15.3); Lymphocytes # 0.9 10^3/uL (0.8-4.8); Lymphocytes % 17.1 %; Mean Corpuscular HGB Conc 31.6 g/dL (30.0-36.0); Mean Corpuscular Volume 91.9 fl (81-99); Mean Platelet Volume 10.5 fL (7.4-10.4); Monocytes # 0.5 10^3/uL (0.2-0.9); Monocytes % 9.9 %; Neutrophils # 3.34 10^3/uL (1.8-7.7); Neutrophils % 64.8 %; Nucleated Red Blood Cells % 0 %; Platelet Count 247 10^3/cmm (130-400); Red Blood Count 4.55 10^6/uL (4.1-5.3); Red Cell Distribution Width 13.1 % (12.1-15.1); White Blood Count 5.2 10^3/uL (4.0-10.0)
[2022-03-29 10:02] LABS: Troponin(5th) Baseline 15 ng/L (0-10)
[2022-03-29 10:05] LABS: Alanine Aminotransferase 7 U/L (0-33); Albumin Level 3.2 g/dL (3.5-5.2); Alkaline Phosphatase 89 IU/L (35-105); Anion Gap 13.1 (5-19); Aspartate Amino Transferase 15 U/L (0-32); Blood Urea Nitrogen 16 mg/dL (8-23); Carbon Dioxide 31 mmol/L (22-29); Chloride 100 mmol/L (98-107); Globulin 3.6 g/dL (1.3-4.6); Glucose 87 mg/dL (65-115); Osmolality Calculated 291 mOsm/kg (285-295); Potassium 4.1 mmol/L (3.5-5.1); Sodium 140 mmol/L (136-145); Total Bilirubin 0.3 mg/dL (0.15-1.2); Total Protein 6.8 g/dL (6.6-8.7)
--- NOTE | 2022-03-29 10:34 | ECG_ITS ---
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 Measurements Intervals [place] Rate: 72 P: 86 AR: 192 QRS: -78 QRSD: 135 T: 87 QT: 445 QTc: 488 Interpretive Statements SINUS RHYTHM WITH SINUS ARRHYTHMIAS LEFT VENTRICULAR HYPERTROPHY Compared to ECG 03/29/2022 08:48:44 Sinus rhythm no longer present Sinus arrhythmia no longer present Left-axis deviation no longer present Left bundle-branch block no longer present Electronically Signed On 03-29-2022 18:00:32 CDT by Kg Victor M.D. [id number]
[2022-03-29 10:36] LABS: Add Urine Microscopic? YES; Bilirubin Urine Neg (Negative); Blood Urine 3+ (Negative); Glucose Urine UA Norm (Normal); Ketones Urine Negative (Negative); Leukocyte Esterase Urine Negative (Negative); Nitrate Urine Negative (Negative); Protein Urine Neg (Negative); Specific Gravity, Urine 1.025 (1.005-1.030); Squamous Epithelial Cell Urine 0-4 /hpf (0-5); Urine Appearance Clear (CLEAR); Urine Color Yellow (Yellow); Urobilinogen Urine Norm (Negative); WBC Urine 0-4 /hpf (0-5); pH Urine 5 (5-7)
[2022-03-29 10:37] LABS: Add Urine Culture? Yes; Bacteria Urine 1+ /hpf; Mucus Urine 1+ /hpf
[2022-03-29 12:02] LABS: Troponin 5 2HR 13.97 ng/L (0-10)
[2022-03-29 12:05] LABS: Troponin 5 2HR Delta -1.03 ABS# (0-10)
[2022-03-29 12:12] LABS: Adenovirus Not Detected (NOT DETECT); Chlamydia Pneumoniae Not Detected (NOT DETECT); Coronavirus 229E,HKU1,NL63,OC4 Not Detected (NOT DETECT); Human Metapneumovirus Not Detected (NOT DETECT); Human Rhinovirus/Enterovirus Not Detected (NOT DETECT); Influenza A Not Detected (NOT DETECT); Influenza A H1 Not Detected (NOT DETECT); Influenza A H1-2009 Not Detected (NOT DETECT); Influenza A H3 Not Detected (NOT DETECT); Influenza B Not Detected (NOT DETECT); Mycoplasma Pneumoniae Not Detected (NOT DETECT); Parainfluenza Virus Type 1 Not Detected (NOT DETECT); Parainfluenza Virus Type 2 Not Detected (NOT DETECT); Parainfluenza Virus Type 3 Not Detected (NOT DETECT); Parainfluenza Virus Type 4 Not Detected (NOT DETECT); Respiratory Syncytial Virus A Not Detected (NOT DETECT); Respiratory Syncytial Virus B Not Detected (NOT DETECT); SARS-COV-2 Not Detected (NOT DETECT)
--- NOTE | 2022-03-29 14:34 | ECG_ITS ---
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 Measurements Intervals [place] Rate: 81 P: 86 [place]: 184 QRS: -71 QRSD: 134 T: 92 QT: 441 QTc: 515 Interpretive Statements SINUS RHYTHM WITH OCCASIONAL SUPRAVENTRICULAR PREMATURE COMPLEXES LEFT AXIS DEVIATION [QRS AXIS < -30] LEFT BUNDLE BRANCH BLOCK [120+ ms QRS DURATION, 80+ ms Q/S IN V1/V2, 85+ ms R IN I/aVL/V5/V6] Compared to ECG 03/29/2022 10:42:10 Left-axis deviation now present Left bundle-branch block now present Ventricular-paced complex(es) or rhythm no longer present Electronically Signed On 03-29-2022 17:59:04 CDT by Kg Victor M.D. [id number]
== END 2022-03-29 15:12 | disposition home or self-care (01) ==
PROVIDERS: Emergency Provider Physician Assistant; PCP Nurse Practitioner
DX: J44.1 Chronic obstructive pulmonary disease with (acute) exacerbation (principal); I10 Essential (primary) hypertension; E78.5 Hyperlipidemia, unspecified; Z87.891 Personal history of nicotine dependence
CPT/HCPCS: 71045; 80053; 81001; 84484; 85025; 87086; 87635; 93005; 94640; 96374; 99285; J2930

== ENCOUNTER → 2023-12-13 13:52 | Outpatient (BNVA) | payer MEDICARE, SELFPAY | PROVIDERS: PCP Nurse Practitioner; Visit Provider Dermatology | DX: D48.5 Neoplasm of uncertain behavior of skin (principal); L57.8 Other skin changes due to chronic exposure to nonionizing radiation | CPT/HCPCS: 11102; 99203 ==

== ENCOUNTER → 2023-12-27 13:36 | Outpatient (BNVA) | payer MEDICARE, SELFPAY | PROVIDERS: PCP Nurse Practitioner; Visit Provider Dermatology | DX: C44.519 Basal cell carcinoma of skin of other part of trunk (principal); C44.612 Basal cell carcinoma of skin of right upper limb, including shoulder; Z79.899 Other long term (current) drug therapy; D48.5 Neoplasm of uncertain behavior of skin | CPT/HCPCS: 99214 ==

== ENCOUNTER → 2024-02-12 13:38 | Outpatient (BNVA) | payer MEDICARE, SELFPAY | PROVIDERS: PCP Nurse Practitioner; Visit Provider Dermatology | DX: C44.519 Basal cell carcinoma of skin of other part of trunk (principal); C44.612 Basal cell carcinoma of skin of right upper limb, including shoulder; Z79.899 Other long term (current) drug therapy | CPT/HCPCS: 99213 ==

== ENCOUNTER → 2024-04-10 13:50 | Outpatient (BNVA) | payer MEDICARE, SELFPAY | PROVIDERS: PCP Nurse Practitioner; Visit Provider Dermatology | DX: C44.519 Basal cell carcinoma of skin of other part of trunk (principal); C44.612 Basal cell carcinoma of skin of right upper limb, including shoulder; Z79.899 Other long term (current) drug therapy | CPT/HCPCS: 99214 ==

== ENCOUNTER → 2024-06-19 14:45 | Outpatient (BNVA) | payer MEDICARE, SELFPAY | PROVIDERS: PCP Nurse Practitioner; Visit Provider Dermatology | DX: C44.519 Basal cell carcinoma of skin of other part of trunk (principal); C44.612 Basal cell carcinoma of skin of right upper limb, including shoulder; Z79.899 Other long term (current) drug therapy; L57.0 Actinic keratosis | CPT/HCPCS: 99214 ==

== ENCOUNTER → 2024-08-14 14:31 | Outpatient (BNVA) | payer MEDICARE, MEDICAID, SELFPAY | PROVIDERS: PCP Nurse Practitioner; Visit Provider Dermatology | DX: C44.519 Basal cell carcinoma of skin of other part of trunk (principal); C44.612 Basal cell carcinoma of skin of right upper limb, including shoulder; D48.5 Neoplasm of uncertain behavior of skin | CPT/HCPCS: 99214 ==

== ENCOUNTER → 2024-11-20 14:00 | Outpatient (BNVA) | payer MEDICARE, MEDICAID, SELFPAY | PROVIDERS: PCP Nurse Practitioner; Visit Provider Dermatology | DX: C44.519 Basal cell carcinoma of skin of other part of trunk (principal); C44.612 Basal cell carcinoma of skin of right upper limb, including shoulder; L57.0 Actinic keratosis | CPT/HCPCS: 99214 ==

== ENCOUNTER → 2025-01-27 14:29 | Outpatient (BNVA) | payer MEDICARE, MEDICAID, SELFPAY | PROVIDERS: PCP Nurse Practitioner; Visit Provider Dermatology | DX: C44.519 Basal cell carcinoma of skin of other part of trunk (principal); C44.612 Basal cell carcinoma of skin of right upper limb, including shoulder; L57.0 Actinic keratosis | CPT/HCPCS: 99214 ==

== ENCOUNTER → 2025-04-13 10:02 | Outpatient (BNVA) | payer MEDICARE, MEDICAID, SELFPAY | PROVIDERS: PCP Nurse Practitioner; Visit Provider Dermatology | DX: C44.612 Basal cell carcinoma of skin of right upper limb, including shoulder (principal); C44.519 Basal cell carcinoma of skin of other part of trunk; L57.0 Actinic keratosis | CPT/HCPCS: 99214 ==

== ENCOUNTER → 2025-06-29 10:12 | Outpatient (BNVA) | payer MEDICARE, MEDICAID, SELFPAY | PROVIDERS: PCP Nurse Practitioner; Visit Provider Dermatology | DX: C44.612 Basal cell carcinoma of skin of right upper limb, including shoulder (principal) | CPT/HCPCS: 99214 ==

== ENCOUNTER → 2025-09-07 08:25 | Outpatient (BNVA) | payer MEDICARE, MEDICAID, SELFPAY | PROVIDERS: PCP Nurse Practitioner; Visit Provider Dermatology | DX: C44.612 Basal cell carcinoma of skin of right upper limb, including shoulder (principal) | CPT/HCPCS: 99214 ==